=== PATIENT | female | born 1935 | race Caucasian/White ===

== ENCOUNTER 2017-09-17 10:56 | Emergency (ER) | payer MEDICARE, BC ==
[~2017-09-17] VITALS: Ht 149.9 cm; Wt 44.5 kg
[~2017-09-17 10:56] MED LIST: ASPI-605 PO; ATEN25TA PO; ATOR10TA PO; LEVO25TA2 PO; TRIA1CAP2 PO
--- NOTE | 2017-09-17 11:40 | NUR ---
BB CAREGIVER: LOWER BACK PAIN S/P GLF 1 WEEK AGO. SEEN BY FOR EVAL. VSS. SAFETY AND COMFORT MEASURES PROVIDED. CAREGIVER REMAINS AT BS. WILL MONITOR.
[2017-09-17] MEDS ORDERED: ONDANSETRON 4 MG TAB.RAPDIS ONE ×2 (12:10→18:56)
[2017-09-17] MEDS ORDERED: HYDROCODONE/APAP 5/325MG 1 EACH TABLET ONE ×2 (12:10→18:56)
[2017-09-17] MEDS: ONDANSETRON 4 MG TAB.RAPDIS SL ONE ×2 (12:14→19:34)
[2017-09-17] MEDS: HYDROCODONE/APAP 5/325MG 1 EACH TABLET PO ONE ×2 (12:14→19:05)
--- NOTE | 2017-09-17 13:10 | NUR ---
PT TAKEN TO CT.
--- NOTE | 2017-09-17 14:10 | NUR ---
CALLED DR LUND, ON THE PHONE WITH DR KRUEGER.
--- NOTE | 2017-09-17 14:20 | NUR ---
PT WANTS TO SIGN AMA. REFUSED ENEMA. AWARE.
[2017-09-17] MEDS: NA PHOS,M-B/NA PHOS,DI-BA 1 EA ENEMA RC ONE (14:52)
--- NOTE | 2017-09-17 15:00 | NUR ---
PT PLACED ON DIAPER. SAFETY MEASURES PROVIDED.
--- NOTE | 2017-09-17 16:18 | NUR ---
CALLED [employer] SURVEY FIELD TECHNICIAN WAS PAGED.
--- NOTE | 2017-09-17 17:12 | NUR ---
DR. SLAUGHTER CALLED AND NOTIFIED US THAT DR LORD WOULD LIKE US TO TRANSFER THE PT TO [facility].
[2017-09-17] MEDS ORDERED: ALPRAZOLAM 0.25 MG TABLET ONE (19:07)
[2017-09-17] MEDS: ALPRAZOLAM 0.25 MG TABLET PO ONE (19:15)
--- NOTE | 2017-09-17 19:48 | NUR ---
CALLED [facility], SPOKE WITH SARAI THEY ARE STILL WAITING FOR A BED TO BE AVAILABLE.
--- NOTE | 2017-09-17 20:40 | NUR ---
PT CLEANED AND CHANGED DIAPER REQUESTED. KEPT COMFORTABLE. CAREGIVER REMAINS AT BS. VSS. WILL MONITOR.
--- NOTE | 2017-09-17 21:06 | NUR ---
RECEIVED TRANSFER INFO FROM TODD [phone] FROM [facility]. TELE ROOM 4416-1; REPORT NUMBER [id number].
--- NOTE | 2017-09-17 21:08 | NUR ---
CALLED [id number]; RECEIPT NUMBER [id number]
--- NOTE | 2017-09-17 22:00 | NUR ---
REPORT GIVEN TO LESA JIMENEZ OF [facility].
--- NOTE | 2017-09-17 23:09 | NUR ---
CALLED [facility] FOR TRANSPORT UPDATED ETA 2330.
[2017-09-17 23:28] VITALS: BP 113/69
--- NOTE | 2017-09-17 23:32 | NUR ---
REPORT GIVEN TO [facility] STAFF FOR TRANSPORT.
== END 2017-09-17 23:43 | disposition short-term general hospital (02) ==
LOC: ER 10:58
DX: S32.029A Unspecified fracture of second lumbar vertebra, initial encounter for closed fracture (principal); M48.56XA Collapsed vertebra, not elsewhere classified, lumbar region, initial encounter for fracture; M81.0 Age-related osteoporosis without current pathological fracture; E11.9 Type 2 diabetes mellitus without complications; I10 Essential (primary) hypertension; Z79.82 Long term (current) use of aspirin; G43.909 Migraine, unspecified, not intractable, without status migrainosus; W18.39XA Other fall on same level, initial encounter; Y93.89 Activity, other specified; Y92.89 Other specified places as the place of occurrence of the external cause; Y99.8 Other external cause status
CPT/HCPCS: 72131-TC; A4606; Q0162; Z7610

== ENCOUNTER 2019-08-21 21:37 | Inpatient (IN) | payer MEDICARE, BC ==
[~2019-08-21] VITALS: Ht 154.9 cm; Wt 60.3 kg
--- NOTE | 2019-08-21 21:56 | NUR ---
PT AAOX3. BIBRA FOR AMS. W/ BASELINE DEMENTIA. PT FROM HOME, PER CAREGIVER, PT ALTERED SO CALLED RA. BG 350 @2100. PER RA, pt has HX of Dementia and A fib. Upon assessment, pt able to recall name and . Placed on monitor and pulse ox. Pt Afebrile. VSS. No acute distress noted. Awaiting MD for eval.
--- NOTE | 2019-08-21 21:59 | NUR ---
PER RA pt given 500ml NS
--- NOTE | 2019-08-21 22:19 | NUR ---
LABS COLLECTED AND SENT TO LAB
--- NOTE | 2019-08-21 22:29 | NUR ---
XRAY AT BEDSIDE
[2019-08-21] MEDS ORDERED: IV NS 0.9% 500 ML BAG IV ONE (22:30)
[2019-08-21 22:33] LABS: BASOPHILS % (AUTO) 0.2 % (0.0-2.0); CALCIUM, SERUM 8.3 mg/dL (8.5-10.1); CARBON DIOXIDE 24 mmol/L (21-32); CHLORIDE 99 mmol/L (98-107); CREATININE 1.6 mg/dL (0.6-1.3); EOSINOPHILS % (AUTO) 0.1 % (0.0-6.0); GLUCOSE 327 mg/dL (74-106); HEMATOCRIT 31 % (33-45); HEMOGLOBIN 10.4 g/dL (11.5-14.8); LYMPHOCYTES # (AUTO) 0.3 /CMM (0.8-4.8); LYMPHOCYTES % (AUTO) 3.5 % (20.0-44.0); MEAN CORPUSCULAR HGB CONC 33 g/dl (31.0-36.0); MEAN CORPUSCULAR VOLUME 94 fL (82-100); MONOCYTES # (AUTO) 0.6 /CMM (0.1-1.30); MONOCYTES % (AUTO) 6.6 % (2.0-12.0); NEUTROPHILS # (AUTO) 8.6 /CMM (1.8-8.9); NEUTROPHILS % (AUTO) 89.6 % (43.0-81.0); PLATELET COUNT (AUTO) 142 /CMM (150-450); RED BLOOD CELL COUNT(AUTO) 3.29 MIL/uL (4.0-5.2); SODIUM SERUM 133 mmol/L (136-145); UREA NITROGEN, BLOOD 48 mg/dL (7-18); WHITE BLOOD COUNT (AUTO) 9.6 K/uL (4.3-11.0)
--- NOTE | 2019-08-21 22:35 | NUR ---
BROUGHT TO CT
[2019-08-21 22:39] LABS: ACETAMINOPHEN 8 ug/ml (10-30); ALANINE AMINOTRANSFERASE 15 U/L (12-78); ALBUMIN 2.6 g/dL (3.4-5.0); ALCOHOL, BLOOD < 3 mg/dL (0-0); ALKALINE PHOSPHATASE 80 U/L (46-116); ASPARTATE AMINOTRANSFERASE 26 U/L (15-37); BILIRUBIN,DIRECT 0.2 mg/dL (0.0-0.2); BILIRUBIN,TOTAL 0.7 mg/dL (0.2-1.0); SALICYLATE 1.5 mg/dL (2.8-20.0); TOTAL PROTEIN, SERUM 6.4 g/dL (6.4-8.2)
[2019-08-21 22:49] LABS: THYROID STIMULATING HORMONE 1.314 uIU/mL (0.358-3.74)
[2019-08-21 22:51] LABS: SERUM AMMONIA < 10 umol/L (11-32)
--- NOTE | 2019-08-21 22:54 | NUR ---
URINE COLLECTED AND SENT TO LAB
[2019-08-21 22:57] LABS: APPEARANCE,URINE Clear (CLEAR); BILIRUBIN,URINE Negative (NEGATIVE); BLOOD, URINE Small Ery/uL (NEGATIVE); COLOR,URINE Yellow (YELLOW); KETONES,URINE Negative (NEGATIVE); LEUKOCYTE ESTERASE ,URINE Small (NEGATIVE); NITRITE, URINE Negative (NEGATIVE); PROTEIN,URINE 30 mg/dl (NEGATIVE); UGLUCOSE 500 MG/DL mg/dL (NEGATIVE); UROBILINOGEN,URINE 0.2 EU/dL (0.2)
[2019-08-21 23:05] LABS: BACTERIA,URINE 1+ /HPF (None Seen); SQUAMOUS EPITHELIAL CELL,UR Few /HPF (None Seen)
[2019-08-21] MEDS ORDERED: GLIP5TAB13 PO (23:41)
[2019-08-21] MEDS ORDERED: LORA-259 PO (23:41)
[2019-08-21] MEDS ORDERED: ATOR80TA PO (23:41)
[2019-08-21] MEDS ORDERED: QUET25TA PO (23:41)
[2019-08-21] MEDS ORDERED: SERT50TA PO (23:41)
[2019-08-21] MEDS ORDERED: DONE5TAB34 PO (23:41)
[2019-08-21] MEDS ORDERED: MEMA10TA PO (23:41)
[2019-08-21] MEDS ORDERED: LEVO50TA8 PO (23:41)
[2019-08-22] VITALS (8 sets, daily range): BP systolic 87–152; BP diastolic 42–69
--- NOTE | 2019-08-22 01:00 | NUR ---
report given to ALEXYS JIMENEZ FOR MAGDALENO AND PT TRANSFERED.
--- NOTE | 2019-08-22 01:49 | NUR ---
contacted dr. frankel in [facility] to admission orders. stated he will write the main orders now, but initial orders given.
[2019-08-22] MEDS ORDERED: CEFTRIAXONE 1 G in IV D5W 50 ML IV ONE (02:00)
[2019-08-22] MEDS ORDERED: CEFTRIAXONE 1 G VIAL ONE (02:40)
[2019-08-22] MEDS: ACETAMINOPHEN 325 MG TABLET PO PRN ×2 (05:14→21:22)
[2019-08-22] MEDS: ONDANSETRON HCL/PF 4 MG/2 ML VIAL IV PRN (05:14)
--- NOTE | 2019-08-22 05:20 | NUR ---
PATIENT HAS TEMP OF 101.5; N/V; PATIENT CREW CALLER GIANA AT THE BEDSIDE, PT COMPLAINING OF NAUSEA AND VOMITING. FOUND IN BED SHAKING, PATIENT HAS VOMITED X1 C/O BEING NAUSEOUS. ZOFRAN ADMINISTERED ORDERED. TEMPERATURE TAKEN AND FOUND TO BE 101.5 DEGREES. PATIENT GIVEN TYELENOL AND EXTRA BLANKETS REMOVED. WILL CONT TO MONITOR.
--- NOTE | 2019-08-22 05:29 | NUR ---
GIANA AND CARIDAD ARE POA PHONE NUMBER; REQUESTED ADVANCE DIRECTIVES. GIANA FARIA PHONE: [phone] HANNAH IS ALSO POA BUT PER GIANA HARDER TO GET AHOLD OF [employer]ID[employer] [phone] REQUESTED COPIES OF ADVANCE DIRECTIVES FROM GIANA. STATES SHE WILL TRY TO BRING THEM O THE HOSPITAL LATER.
[2019-08-22] MEDS ORDERED: ACETAMINOPHEN 325 MG TABLET PO PRN (07:00)
[2019-08-22] MEDS ORDERED: ONDANSETRON HCL/PF 4 MG/2 ML VIAL IVP PRN (07:00)
[2019-08-22] MEDS ORDERED: CEFTRIAXONE 1 G in IV D5W 50 ML IV SCH (07:00)
[2019-08-22] MEDS ORDERED: DEXTROSE 50%-WATER 50 ML DISP.SYRIN IV PRN (07:00)
[2019-08-22] MEDS ORDERED: Z GUARD REMEDY 2 OZ OINT TP PRN (07:00)
[2019-08-22] MEDS: BLOOD SUGAR DIAGNOSTIC 1 EACH STRIP IN SCH ×4 (07:30→21:22)
--- NOTE | 2019-08-22 08:00 | NUR ---
ms rn received on bed, awake,alert,oriented x2-3 ,not in any form of distress, respirations even and unlabored,no sob noted, respiratory care specialist at bedside, will monitor patient.
[2019-08-22 08:31] LABS: CALCIUM, SERUM 8.2 mg/dL (8.5-10.1); CARBON DIOXIDE 22 mmol/L (21-32); CHLORIDE 97 mmol/L (98-107); CREATININE 1.6 mg/dL (0.6-1.3); GLUCOSE 328 mg/dL (74-106); SODIUM SERUM 132 mmol/L (136-145); UREA NITROGEN, BLOOD 43 mg/dL (7-18)
[2019-08-22 08:40] LABS: ALANINE AMINOTRANSFERASE 22 U/L (12-78); ALBUMIN 2.5 g/dL (3.4-5.0); ALKALINE PHOSPHATASE 82 U/L (46-116); ASPARTATE AMINOTRANSFERASE 32 U/L (15-37); BILIRUBIN,TOTAL 0.6 mg/dL (0.2-1.0); MAGNESIUM 1.9 mg/dL (1.8-2.4); PHOSPHORUS 1.9 mg/dL (2.5-4.9); TOTAL PROTEIN, SERUM 6.1 g/dL (6.4-8.2)
--- NOTE | 2019-08-22 08:40 | NUR ---
ms rn received critical value of k - 2.5 and trop is elevated, left message to jesus, and charge nurse was notified.
[2019-08-22 08:43] LABS: BASOPHILS % (AUTO) 0.1 % (0.0-2.0); CHOLESTEROL 100 mg/dL (<200); HDL CHOLESTEROL 34 mg/dL (40-60); HEMATOCRIT 31 % (33-45); HEMOGLOBIN 10.4 g/dL (11.5-14.8); LDL 47 mg/dL (0-99); LYMPHOCYTES # (AUTO) 0.2 /CMM (0.8-4.8); LYMPHOCYTES % (AUTO) 1.9 % (20.0-44.0); MEAN CORPUSCULAR HGB CONC 34 g/dl (31.0-36.0); MEAN CORPUSCULAR VOLUME 93 fL (82-100); MONOCYTES # (AUTO) 0.5 /CMM (0.1-1.30); MONOCYTES % (AUTO) 6.7 % (2.0-12.0); NEUTROPHILS # (AUTO) 7.2 /CMM (1.8-8.9); NEUTROPHILS % (AUTO) 91.3 % (43.0-81.0); PLATELET COUNT (AUTO) 118 /CMM (150-450); RED BLOOD CELL COUNT(AUTO) 3.33 MIL/uL (4.0-5.2); THYROID STIMULATING HORMONE 1.013 uIU/mL (0.358-3.74); TRIGLYCERIDES 80 mg/dL (30-150); WHITE BLOOD COUNT (AUTO) 7.9 K/uL (4.3-11.0)
[2019-08-22 08:46] LABS: POTASSIUM 2.5 mmol/L (3.5-5.1)
[2019-08-22] MEDS: ATENOLOL 25 MG TABLET PO SCH (09:00)
[2019-08-22 09:02] LABS: IRON, SERUM 23 ug/dl (50-175); TOTAL IRON BINDING CAPACITY 132 ug/dl (250-450)
--- NOTE | 2019-08-22 09:30 | NUR ---
ms rn patient is so sleepy and weak at this time, will held am meds, will give later.
[2019-08-22] MEDS ORDERED: POTASSIUM CL. PREMIX PERIPHER. 50 ML IV SCH (10:00)
--- NOTE | 2019-08-22 11:00 | NUR ---
ms rn was seen by dr. dante ellison/ orders made and carried out,
--- NOTE | 2019-08-22 12:50 | NUR ---
ms rn due meds given,tolerated well.
[2019-08-22] MEDS ORDERED: NEUTRA PHOS 1 POWD.PACKET PO ONE (13:00)
[2019-08-22] MEDS: QUETIAPINE FUMARATE 25 MG TABLET PO SCH ×2 (13:25→16:40)
[2019-08-22] MEDS: MEMANTINE HCL 5 MG TABLET PO SCH (13:25)
[2019-08-22] MEDS: LEVOTHYROXINE SODIUM 25 MCG TABLET PO SCH (13:25)
[2019-08-22] MEDS: PANTOPRAZOLE 40 MG TABLET.DR PO SCH (13:25)
[2019-08-22] MEDS: SERTRALINE HCL 50 MG TABLET PO SCH (13:25)
[2019-08-22] MEDS: ASPIRIN EC 81 MG TABLET.DR PO SCH (13:26)
[2019-08-22] MEDS: POTASSIUM CHLORIDE 20 MEQ TAB.PRT.SR PO SCH ×5 (13:26→17:39)
[2019-08-22] MEDS: DONEPEZIL 5 MG TABLET PO SCH (13:26)
[2019-08-22] MEDS: DOCUSATE SODIUM 100 MG CAPSULE PO SCH ×2 (13:26→17:39)
[2019-08-22] MEDS: glipiZIDE 5 MG TABLET PO SCH ×2 (13:26→17:39)
[2019-08-22] MEDS: ENOXAPARIN SODIUM 60 MG/0.6 ML DISP.SYRIN SQ SCH (13:35)
[2019-08-22] MEDS: INSULIN REGULAR, HUMAN 100 UNIT/ML 3 ML VIAL SQ PRN ×3 (13:45→21:37)
--- NOTE | 2019-08-22 15:20 | NUR ---
ms rn' eceived a positive blood culture result, cn made awake, will relay to md.
--- NOTE | 2019-08-22 16:02 | NUR ---
ms rn' on bed, no distress noted.
--- NOTE | 2019-08-22 20:34 | NUR ---
SIGNAL TOWER DIRECTOR NOTES RECIEVED PT ON BED AWAKE, ALERT ORIENTED X2, WITH FAMILY MEMBER AT BEDSIDE, NO SIGN AND SYMPTOMS OF RESPIRATORY DISTRESS, COMPLAINING OF PAIN ON LEFT LEG X5, REPOSITION PT, PUT ICE PACK TO RELIEVED PAIN, PT HAVE IV LINE OF R ARM WITH FLUID INFUSING WELL, PUT BED ON LOWEST POSITION, SIDERAILS UPX2 CALL LIGHT WITHIN REACH WILL CONTINUE TO MONITOR
[2019-08-22] MEDS: IV NS 0.9% 1,000 ML IV PRN (21:17)
[2019-08-22] MEDS: ATORVASTATIN 10 MG TABLET PO SCH (21:22)
[2019-08-23 01:00] VITALS: BP 98/60
[2019-08-23] MEDS: MORPHINE SULFATE INJ 2 MG/ML DISP.SYRIN IV PRN ×3 (02:31→15:26)
[2019-08-23] MEDS: CEFTRIAXONE 1 G in IV D5W 50 ML IV SCH (04:47)
[2019-08-23 05:00] VITALS: BP 120/58
[2019-08-23] MEDS: ACETAMINOPHEN 325 MG TABLET PO PRN (05:26)
[2019-08-23 06:30] LABS: BASOPHILS % (AUTO) 0.2 % (0.0-2.0); EOSINOPHILS % (AUTO) 0.5 % (0.0-6.0); HEMATOCRIT 28 % (33-45); HEMOGLOBIN 9.5 g/dL (11.5-14.8); LYMPHOCYTES # (AUTO) 0.7 /CMM (0.8-4.8); LYMPHOCYTES % (AUTO) 8.6 % (20.0-44.0); MEAN CORPUSCULAR HGB CONC 34 g/dl (31.0-36.0); MEAN CORPUSCULAR VOLUME 93 fL (82-100); MONOCYTES # (AUTO) 0.8 /CMM (0.1-1.30); MONOCYTES % (AUTO) 9.6 % (2.0-12.0); NEUTROPHILS # (AUTO) 6.4 /CMM (1.8-8.9); NEUTROPHILS % (AUTO) 81.1 % (43.0-81.0); PLATELET COUNT (AUTO) 138 /CMM (150-450); RED BLOOD CELL COUNT(AUTO) 3.01 MIL/uL (4.0-5.2); WHITE BLOOD COUNT (AUTO) 7.9 K/uL (4.3-11.0)
[2019-08-23 06:46] LABS: ALANINE AMINOTRANSFERASE 19 U/L (12-78); ALBUMIN 2.1 g/dL (3.4-5.0); ALKALINE PHOSPHATASE 67 U/L (46-116); ASPARTATE AMINOTRANSFERASE 35 U/L (15-37); BILIRUBIN,TOTAL 0.3 mg/dL (0.2-1.0); CALCIUM, SERUM 7.5 mg/dL (8.5-10.1); CARBON DIOXIDE 22 mmol/L (21-32); CHLORIDE 101 mmol/L (98-107); CREATININE 1.4 mg/dL (0.6-1.3); GLUCOSE 75 mg/dL (74-106); MAGNESIUM 1.8 mg/dL (1.8-2.4); PHOSPHORUS 2.2 mg/dL (2.5-4.9); POTASSIUM 3.7 mmol/L (3.5-5.1); SODIUM SERUM 134 mmol/L (136-145); TOTAL PROTEIN, SERUM 5.7 g/dL (6.4-8.2); UREA NITROGEN, BLOOD 42 mg/dL (7-18)
--- NOTE | 2019-08-23 07:10 | NUR ---
RN OPENING NOTE: RECEIVED PATIENT IN BED THIS MORNING. PATIENT IS ALERT, ABLE TO FOLLOW COMMANDS BUT HAS SERIES OF CONFUSION/FORGETFULNESS. CAREGIVER IS AT BEDSIDE. NO ACUTE DISTRESS NOTED. PATIENT IS ON A TELE MONITOR, SINUS RHYTHM. NO SX OF RESPIRATORY DISTRESS. PATIENT C/O PAIN TO HEAD/NECK, WILL ATTAIN TO NEEDS. IV ON RIGHT ARM, FLUSHING WELL, SITE C/D/I. SAFETY MEASURES IMPLICATED, SIDE RAILS UPX2. CALL LIGHT WITHIN REACH. WILL CONTINUE TO MONITOR PATIENT FOR ANY CHANGES.
--- NOTE | 2019-08-23 07:13 | NUR ---
RN CLOSING NOTES PT AWAKE ON BED NO SIGN AND SYMPTOMS OF RESPIRATORY DISTRESS, ON ROOM AIR O2 SAT @ 97, STILL COMPLAINING OF LEFT LEG PAIN TYLENOL LAST GIVEN @ 0525, MORPHINE 1G @ 0231, DOCTOR YVONNE AWARE, OTHER THAT THAT THERE IS NO SIGNIFICANT CHANGES ON CONDITION NOTED, ALL NEEDS ATTENDED, SAFETY MEASURE MAINTAINED, BED ON LOWEST POSSIBLE POSITION, SIDERAILS UP X 2 CAREGIVER ON BEDSIDE, WILL ENDORSE TO AM SHIFT NURSE Addendum: 08/23/19 at 0752 by ASHA SAVAGE RN PT ON TELE MONITOR WITH CURRENT READING OF SR 67
[2019-08-23 07:17] LABS: CREATINE KINASE, TOTAL 165 U/L (26-192)
[2019-08-23] MEDS: glipiZIDE 5 MG TABLET PO SCH ×2 (07:30→17:28)
[2019-08-23 08:00] VITALS: BP 113/60
[2019-08-23] MEDS: BLOOD SUGAR DIAGNOSTIC 1 EACH STRIP IN SCH ×4 (08:04→21:05)
[2019-08-23] MEDS: INSULIN REGULAR, HUMAN 100 UNIT/ML 3 ML VIAL SQ PRN ×5 (08:05→21:19)
[2019-08-23 08:06] LABS: CREATININE, URINE 76.2 MG/DL (30.0-125.0); URINE SODIUM, RANDOM < 5 mmol/l (40-220); URINE TOTAL PROTEIN 39.3 mg/dL (0-11.9)
[2019-08-23] MEDS: DOCUSATE SODIUM 100 MG CAPSULE PO SCH ×2 (08:35→17:28)
[2019-08-23] MEDS: ENOXAPARIN SODIUM 60 MG/0.6 ML DISP.SYRIN SQ SCH (08:35)
[2019-08-23] MEDS: DONEPEZIL 5 MG TABLET PO SCH (08:35)
[2019-08-23] MEDS: QUETIAPINE FUMARATE 25 MG TABLET PO SCH ×2 (08:35→17:28)
[2019-08-23] MEDS: SERTRALINE HCL 50 MG TABLET PO SCH (08:35)
[2019-08-23] MEDS: MEMANTINE HCL 5 MG TABLET PO SCH (08:35)
[2019-08-23] MEDS: ASPIRIN EC 81 MG TABLET.DR PO SCH (08:35)
[2019-08-23] MEDS: ATENOLOL 25 MG TABLET PO SCH (08:36)
[2019-08-23] MEDS: LEVOTHYROXINE SODIUM 25 MCG TABLET PO SCH (08:38)
[2019-08-23] MEDS: PANTOPRAZOLE 40 MG TABLET.DR PO SCH (08:38)
[2019-08-23] MEDS: IV NS 0.9% 1,000 ML IV PRN (08:41)
[2019-08-23 09:27] LABS: APPEARANCE,URINE CLOUDY (CLEAR); BILIRUBIN,URINE NEGATIVE (NEGATIVE); BLOOD, URINE MODERATE Ery/uL (NEGATIVE); COLOR,URINE YELLOW (YELLOW); KETONES,URINE NEGATIVE (NEGATIVE); LEUKOCYTE ESTERASE ,URINE MODERATE (NEGATIVE); NITRITE, URINE NEGATIVE (NEGATIVE); PROTEIN,URINE NEGATIVE (NEGATIVE); UGLUCOSE NEGATIVE (NEGATIVE); UROBILINOGEN,URINE 0.2 EU/dL (0.2)
[2019-08-23 10:29] LABS: BACTERIA,URINE 2+ /HPF (None Seen); MUCUS,URINE Few /LPF (None Seen); URINE AMORPHOUS URATE Few /HPF (None Seen); WBC,URINE 21-50 /HPF (0-3)
[2019-08-23] MEDS ORDERED: SODIUM POLYSTYRENE SULF. PWD 15 GM UDC RC ONE (11:00)
[2019-08-23 11:26] LABS: EOSINOPHIL,URINE None Seen
[2019-08-23] MEDS ORDERED: K PHOS NEUTRAL 250 MG TABLET PO ONE (14:30)
[2019-08-23 16:00] VITALS: BP 100/56
--- NOTE | 2019-08-23 19:12 | NUR ---
RN CLOSING NOTE: PATIENT IS CURRENTLY RESTING IN BED. NO ACUTE DISTRESS NOTED/ACUTE CHANGES NOTED THROUGHOUT SHIFT. VSS. PATIENT NEEDS HAVE BEEN MET. SAFETY MEASURES HAVE BEEN IMPLEMENTED. CAREGIVER AT BEDSIDE. BED IN LOWEST AND LOCKED POSITION, SIDE RAILS UP X2, CALL LIGHT WITHIN REACH. HANDOFF REPORT TO ONCOMING NURSE FOR CONTINUITY OF CARE.
[2019-08-23 20:00] VITALS: BP 97/58
--- NOTE | 2019-08-23 20:00 | NUR ---
MS/RN OPENING NOTES RECEIVED PATIENT IN BED, HOB ELEVATED, RESTING COMFORTABLY IN BED, FAMILY MEMBER AT BEDSIDE. DISCUSSED PLAN OF CARE, NO GRIMACE OR GUARDING NOTED. RESPIRATIONS EVEN AND UNLABORED, SKIN WARM TO TOUCH, OFFERED AND PROVIDED FLUIDS, BED LOCKED, CALL LIGHTS WITHIN REACH, WILL MONITOR.
[2019-08-23] MEDS: ATORVASTATIN 10 MG TABLET PO SCH (21:04)
[2019-08-23] MEDS: ropiniROLE 0.5 MG TABLET PO SCH (21:04)
--- NOTE | 2019-08-23 21:45 | NUR ---
MS/RN NOTES RECEIVED PATIENT IN BED, AWAKE, ALERT X2, NO GRIMACE OR GUARDING, COMPLIANT TO CARE. RESPIRATIONS EVEN AN UNLABORED, ON ROOM AIR, SKIN WARM TO TOUCH. KEPT COMFORTABLE, ASSISTED WITH ALL NEEDS, MONITORING FOR ANY CHANGES. CAREGIVER AT BEDSIDE, BED LOCKED. CALL LIGHTS WITHIN REACH. RECEIVED ENDORSEMENT FROM AM RN FOR MAGDALENO. IV FLUIDS RUNNING, RIGHT AC PATENT.
[2019-08-24] VITALS: BP_SYST 144; BP_SYST 97; BP_DIAS 58; BP_DIAS 73
[2019-08-24] MEDS: ACETAMINOPHEN 325 MG TABLET PO PRN (02:13)
--- NOTE | 2019-08-24 02:20 | NUR ---
MS/RN NOTES PATIENTAWAKEN FROM SLEEP, TYLENOL 650 MG PO REQUESTED FOR SOME PAIN. TO MONITOR RELIEF.
[2019-08-24] MEDS: CEFTRIAXONE 1 G in IV D5W 50 ML IV SCH (04:01)
[2019-08-24 06:27] LABS: BASOPHILS % (AUTO) 0.2 % (0.0-2.0); EOSINOPHILS % (AUTO) 1.6 % (0.0-6.0); HEMATOCRIT 25 % (33-45); HEMOGLOBIN 8.4 g/dL (11.5-14.8); LYMPHOCYTES % (AUTO) 13.9 % (20.0-44.0); MEAN CORPUSCULAR HGB CONC 34 g/dl (31.0-36.0); MEAN CORPUSCULAR VOLUME 92 fL (82-100); MONOCYTES # (AUTO) 0.8 /CMM (0.1-1.30); MONOCYTES % (AUTO) 11.6 % (2.0-12.0); NEUTROPHILS % (AUTO) 72.7 % (43.0-81.0); PLATELET COUNT (AUTO) 130 /CMM (150-450); RED BLOOD CELL COUNT(AUTO) 2.67 MIL/uL (4.0-5.2); WHITE BLOOD COUNT (AUTO) 6.9 K/uL (4.3-11.0)
[2019-08-24 06:52] LABS: ALANINE AMINOTRANSFERASE 13 U/L (12-78); ALBUMIN 1.7 g/dL (3.4-5.0); ALKALINE PHOSPHATASE 52 U/L (46-116); ASPARTATE AMINOTRANSFERASE 23 U/L (15-37); BILIRUBIN,TOTAL 0.2 mg/dL (0.2-1.0); CALCIUM, SERUM 7.6 mg/dL (8.5-10.1); CARBON DIOXIDE 20 mmol/L (21-32); CHLORIDE 101 mmol/L (98-107); CREATININE 1.4 mg/dL (0.6-1.3); GLUCOSE 119 mg/dL (74-106); MAGNESIUM 1.9 mg/dL (1.8-2.4); PHOSPHORUS 3.3 mg/dL (2.5-4.9); POTASSIUM 3.8 mmol/L (3.5-5.1); SODIUM SERUM 132 mmol/L (136-145); UREA NITROGEN, BLOOD 37 mg/dL (7-18)
[2019-08-24] MEDS: BLOOD SUGAR DIAGNOSTIC 1 EACH STRIP IN SCH ×4 (07:30→21:52)
[2019-08-24 07:58] LABS: PTH, INTACT 110 pg/mL (15-65)
[2019-08-24 08:00] VITALS: BP 125/62
[2019-08-24] MEDS: ONDANSETRON HCL/PF 4 MG/2 ML VIAL IV PRN (08:17)
[2019-08-24] MEDS: ASPIRIN EC 81 MG TABLET.DR PO SCH (08:20)
[2019-08-24] MEDS: SERTRALINE HCL 50 MG TABLET PO SCH (08:20)
[2019-08-24] MEDS: DOCUSATE SODIUM 100 MG CAPSULE PO SCH ×2 (08:20→17:16)
[2019-08-24] MEDS: PANTOPRAZOLE 40 MG TABLET.DR PO SCH (08:21)
[2019-08-24] MEDS: DONEPEZIL 5 MG TABLET PO SCH (08:21)
[2019-08-24] MEDS: LEVOTHYROXINE SODIUM 25 MCG TABLET PO SCH (08:21)
[2019-08-24] MEDS: ATENOLOL 25 MG TABLET PO SCH (08:21)
[2019-08-24] MEDS: MEMANTINE HCL 5 MG TABLET PO SCH (08:21)
[2019-08-24] MEDS: QUETIAPINE FUMARATE 25 MG TABLET PO SCH ×2 (08:21→17:16)
[2019-08-24] MEDS: glipiZIDE 5 MG TABLET PO SCH ×2 (08:21→17:15)
[2019-08-24] MEDS: MORPHINE SULFATE INJ 2 MG/ML DISP.SYRIN IV PRN (08:25)
[2019-08-24] MEDS: ENOXAPARIN SODIUM 30 MG/0.3 ML DISP.SYRIN SQ SCH (09:00)
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
[2019-08-24] MEDS: INSULIN REGULAR, HUMAN 100 UNIT/ML 3 ML VIAL SQ PRN ×2 (11:39→17:17)
[2019-08-24 12:00] VITALS: BP 125/62
[2019-08-24 15:17] LABS: *SPE A/G RATIO 0.8 (0.7-1.7); *SPE ALBUMIN 2.3 g/dL (2.9-4.4); *SPE ALPHA-1-GLOBULIN 0.5 g/dL (0.0-0.4); *SPE ALPHA-2-GLOBULIN 0.9 g/dL (0.4-1.0); *SPE BETA GLOBULIN 0.7 g/dL (0.7-1.3); *SPE GLOBULIN, TOTAL 2.9 g/dL (2.2-3.9); *SPE M-SPIKE Not Observed g/dL (Not Observed); *SPEGAMMA GLOBULIN 0.8 g/dL (0.4-1.8)
[2019-08-24] MEDS: IV NS 0.9% 1,000 ML IV PRN (15:36)
--- NOTE | 2019-08-24 18:52 | NUR ---
PATIENT IS CURRENTLY RESTING IN BED. NO ACUTE DISTRESS NOTED/ACUTE CHANGES NOTED THROUGHOUT SHIFT. VS ARE STABLE. PATIENT NEEDS ATTENDED. SAFETY MEASURES HAVE BEEN IMPLEMENTED. CAREGIVER AT BEDSIDE. BED IN LOWEST AND LOCKED POSITION, SIDE RAILS UP X2, CALL LIGHT WITHIN REACH. WILL ENDORSE TO NEXT SHIFT FOR CONTINUITY OF CARE.
--- NOTE | 2019-08-24 19:40 | NUR ---
RN Notes Patient awake, alert and oriented x2, denies any pain and discomfort at this time. IV acces on rifght hand patent and intact with ongoing IVF infusing well. Plan of care discussed with the pharmacist critical care at bedside and verbalized understanding.Safety measures and fall precaution observed with call light with in reach. Will continue to monitor patient.
[2019-08-24 20:00] VITALS: BP 109/51
[2019-08-24] MEDS: ATORVASTATIN 10 MG TABLET PO SCH (21:53)
[2019-08-24] MEDS: ropiniROLE 0.5 MG TABLET PO SCH (21:53)
[2019-08-25] VITALS: BP 109/51
[2019-08-25] MEDS: IV NS 0.9% 1,000 ML IV PRN (03:30)
[2019-08-25] MEDS: MORPHINE SULFATE INJ 2 MG/ML DISP.SYRIN IV PRN (03:32)
--- NOTE | 2019-08-25 03:32 | NUR ---
RN Notes Patient complains of pain in her left leg, 02/25. Morphine 1mg given IVP. Will continue to monitor.
[2019-08-25 04:00] VITALS: BP 110/55
[2019-08-25] MEDS: CEFTRIAXONE 1 G in IV D5W 50 ML IV SCH (04:58)
[2019-08-25] MEDS: BLOOD SUGAR DIAGNOSTIC 1 EACH STRIP IN SCH ×4 (07:01→21:42)
--- NOTE | 2019-08-25 07:06 | NUR ---
RN Notes Patient slept well overnight, vital signs stable, afebrile. No signs of distress and discomfort noted. Patient refused to be turned and repositioned. Kept clean and dry. All needs attended with caregiver at bedside.
--- NOTE | 2019-08-25 07:20 | NUR ---
INITIAL RECEIVED PATIENT IN BED, HOB ELEVATED, RESTING COMFORTABLY IN BED, FAMILY MEMBER AT BEDSIDE. DISCUSSED PLAN OF CARE, NO GRIMACE OR GUARDING NOTED. RESPIRATIONS EVEN AND UNLABORED, SKIN WARM TO TOUCH, OFFERED AND PROVIDED FLUIDS, BED LOCKED, CALL LIGHTS WITHIN REACH, WILL MONITOR.
[2019-08-25 07:24] LABS: BASOPHILS % (AUTO) 0.4 % (0.0-2.0); HEMATOCRIT 29 % (33-45); HEMOGLOBIN 9.5 g/dL (11.5-14.8); LYMPHOCYTES # (AUTO) 1.3 /CMM (0.8-4.8); LYMPHOCYTES % (AUTO) 19.9 % (20.0-44.0); MEAN CORPUSCULAR HGB CONC 33 g/dl (31.0-36.0); MEAN CORPUSCULAR VOLUME 94 fL (82-100); MONOCYTES # (AUTO) 0.8 /CMM (0.1-1.30); MONOCYTES % (AUTO) 12.8 % (2.0-12.0); NEUTROPHILS # (AUTO) 4.1 /CMM (1.8-8.9); NEUTROPHILS % (AUTO) 64.9 % (43.0-81.0); PLATELET COUNT (AUTO) 178 /CMM (150-450); RED BLOOD CELL COUNT(AUTO) 3.08 MIL/uL (4.0-5.2); WHITE BLOOD COUNT (AUTO) 6.3 K/uL (4.3-11.0)
[2019-08-25] MEDS: LEVOTHYROXINE SODIUM 25 MCG TABLET PO SCH (07:40)
[2019-08-25] MEDS: PANTOPRAZOLE 40 MG TABLET.DR PO SCH (07:40)
[2019-08-25] MEDS: glipiZIDE 5 MG TABLET PO SCH ×2 (07:40→16:05)
[2019-08-25 08:00] VITALS: BP 121/59
[2019-08-25 08:20] LABS: CALCIUM, SERUM 7.9 mg/dL (8.5-10.1); CARBON DIOXIDE 20 mmol/L (21-32); CHLORIDE 102 mmol/L (98-107); CREATININE 1.2 mg/dL (0.6-1.3); GLUCOSE 104 mg/dL (74-106); MAGNESIUM 1.9 mg/dL (1.8-2.4); PHOSPHORUS 3.2 mg/dL (2.5-4.9); POTASSIUM 3.7 mmol/L (3.5-5.1); SODIUM SERUM 133 mmol/L (136-145); UREA NITROGEN, BLOOD 30 mg/dL (7-18)
[2019-08-25] MEDS: ATENOLOL 25 MG TABLET PO SCH (09:00)
[2019-08-25] MEDS: SERTRALINE HCL 50 MG TABLET PO SCH (09:11)
[2019-08-25] MEDS: MEMANTINE HCL 5 MG TABLET PO SCH (09:11)
[2019-08-25] MEDS: DOCUSATE SODIUM 100 MG CAPSULE PO SCH ×2 (09:11→16:05)
[2019-08-25] MEDS: ASPIRIN EC 81 MG TABLET.DR PO SCH (09:11)
[2019-08-25] MEDS: DONEPEZIL 5 MG TABLET PO SCH (09:11)
[2019-08-25] MEDS: ENOXAPARIN SODIUM 30 MG/0.3 ML DISP.SYRIN SQ SCH (09:13)
[2019-08-25] MEDS: QUETIAPINE FUMARATE 25 MG TABLET PO SCH ×2 (09:18→16:05)
--- NOTE | 2019-08-25 11:40 | NUR ---
BARBARA NOTE: Clarified with Patrick Arenas DNP regarding the 2 IVF order for the patient. Per Patrick Arenas, FANNIE wanted to keep the 0.45% NS + KCL 20meq @60ml/hr and will DC the NS IVF. Order, noted and carried out. BARBARA Miranda was made aware.
[2019-08-25] MEDS: INSULIN REGULAR, HUMAN 100 UNIT/ML 3 ML VIAL SQ PRN ×3 (11:57→21:45)
[2019-08-25 12:00] VITALS: BP 121/59
[2019-08-25 16:00] VITALS: BP 128/62
[2019-08-25] MEDS ORDERED: LEVOFLOXACIN (500MG) 500 MG TABLET PO ONE (16:00)
--- NOTE | 2019-08-25 19:13 | NUR ---
CLOSING PT REMAINS SAFE ALL MEDICATIONS TAKEN AND GIVEN PT STARTED ON PO ANTIBIOTICS. WILL GIVEN RN REPORT TO MIX CHEMIST RN FOR CONTINUITY OF CARE.
--- NOTE | 2019-08-25 19:31 | NUR ---
MS RN RECEIVED PATIENT IN BED A/O X 2 CAREGIVER AT BEDSIDE,WATCHING TV, STABLE AND NOT IN DISTRESS. WILL CONTINUE TO MONITOR
[2019-08-25 20:00] VITALS: BP 97/46
[2019-08-25] MEDS: ATORVASTATIN 10 MG TABLET PO SCH (21:27)
[2019-08-25] MEDS: ACETAMINOPHEN 325 MG TABLET PO PRN (21:27)
[2019-08-25] MEDS: ropiniROLE 0.5 MG TABLET PO SCH (21:30)
[2019-08-26 04:00] VITALS: BP 101/51
--- NOTE | 2019-08-26 05:01 | NUR ---
V/S TAKEN BP 105/58 R 19 P 68
[2019-08-26] MEDS: MORPHINE SULFATE INJ 2 MG/ML DISP.SYRIN IV PRN (05:02)
--- NOTE | 2019-08-26 06:25 | NUR ---
MS RN PT SLEPT WELL. NO SIGNIFICANT CHANGES, CAREGIVER AT BEDSIDE, NO S/S OF DISTRESS, STABLE. NEEDS ATTENDED AND ANTICIPATED, KEPT CLEAN, DRY AND COMFORTABLE. AM CARE RENDERED. SAFETY MEASURES AT ALL TIMES. WILL ENDORSE POC.
[2019-08-26 06:26] LABS: BASOPHILS % (AUTO) 0.7 % (0.0-2.0); EOSINOPHILS % (AUTO) 2.4 % (0.0-6.0); HEMATOCRIT 26 % (33-45); HEMOGLOBIN 8.9 g/dL (11.5-14.8); LYMPHOCYTES # (AUTO) 1.4 /CMM (0.8-4.8); LYMPHOCYTES % (AUTO) 25.1 % (20.0-44.0); MEAN CORPUSCULAR HGB CONC 34 g/dl (31.0-36.0); MEAN CORPUSCULAR VOLUME 92 fL (82-100); MONOCYTES # (AUTO) 0.7 /CMM (0.1-1.30); MONOCYTES % (AUTO) 13.8 % (2.0-12.0); NEUTROPHILS # (AUTO) 3.1 /CMM (1.8-8.9); PLATELET COUNT (AUTO) 203 /CMM (150-450); WHITE BLOOD COUNT (AUTO) 5.4 K/uL (4.3-11.0)
[2019-08-26 06:43] LABS: ALBUMIN 1.6 g/dL (3.4-5.0); BILIRUBIN,TOTAL 0.2 mg/dL (0.2-1.0); CREATININE 1.1 mg/dL (0.6-1.3); MAGNESIUM 1.9 mg/dL (1.8-2.4); PHOSPHORUS 3.6 mg/dL (2.5-4.9); POTASSIUM 4.2 mmol/L (3.5-5.1); TOTAL PROTEIN, SERUM 5.3 g/dL (6.4-8.2)
--- NOTE | 2019-08-26 07:30 | NUR ---
MS RN OPENING NOTES RECEIVED PATIENT AWAKE IN BED, A/O 2, PATIENT IS FORGETFUL AND CONFUSED. SKIN LOOKS CLEAN AND DRY. CAREGIVER IS AT BEDSIDE. IV ON RIGHT FOREARM AND RAC BOTH #20, INTACT, PATENT, AND FLUSHED WELL. NO S/S OF INFECTION IS NOTED. POTASSIUM CH. RUNNING AT 60MLS/HR. NO DISTRESS NOTED. PATIENT IS ON ROOM AIR, TOLERATING WELL, SATURATION AT 95%. SAFETY MAINTAINED, CALL LIGHT WITHIN REACH, WILL CONTINUE TO MONITOR.
[2019-08-26] MEDS: BLOOD SUGAR DIAGNOSTIC 1 EACH STRIP IN SCH ×2 (07:33→11:58)
[2019-08-26] MEDS: glipiZIDE 5 MG TABLET PO SCH (07:34)
[2019-08-26] MEDS: LEVOTHYROXINE SODIUM 25 MCG TABLET PO SCH (07:34)
[2019-08-26] MEDS: PANTOPRAZOLE 40 MG TABLET.DR PO SCH (07:34)
[2019-08-26 08:00] VITALS: BP 102/63
[2019-08-26] MEDS: SERTRALINE HCL 50 MG TABLET PO SCH (08:53)
[2019-08-26 08:54] VITALS: BP 102/63
[2019-08-26] MEDS: MEMANTINE HCL 5 MG TABLET PO SCH (08:54)
[2019-08-26] MEDS: QUETIAPINE FUMARATE 25 MG TABLET PO SCH (08:54)
[2019-08-26] MEDS: ATENOLOL 25 MG TABLET PO SCH (08:54)
[2019-08-26] MEDS: DONEPEZIL 5 MG TABLET PO SCH (08:54)
[2019-08-26] MEDS: DOCUSATE SODIUM 100 MG CAPSULE PO SCH (09:00)
[2019-08-26] MEDS: ENOXAPARIN SODIUM 30 MG/0.3 ML DISP.SYRIN SQ SCH (09:00)
[2019-08-26] MEDS: ASPIRIN EC 81 MG TABLET.DR PO SCH (09:00)
--- NOTE | 2019-08-26 09:00 | NUR ---
PATIENT REFUSED SOME OF 0900 MEDS. REFUSED LOVENOX, ASPIRIN, AND DOCUSATE. PATIENT WAS REORIENTED AND EDUCATION WAS PROVIDED. EXPLAINED BENEFITS OF THE MEDICATION, PATIENT WOULD NOT TAKE THE MEDICATION ANYWAY. BP MEDICATION WAS ALSO HELD DUE TO LOW BP.
[2019-08-26] MEDS ORDERED: LEVO500T90 PO (12:35)
--- NOTE | 2019-08-26 14:30 | NUR ---
PATIENT WAS PICKED UP BY [facility]. PATIENT IN STABLE CONDITION, GOING HOME WITH A CAREGIVER. PATIENT IS GOING TO BE UNDER 24/7 SUPERVISION BY CAREGIVER. D/C INSTRUCTIONS PROVIDED TO THE PATIENT AND THE CAREGIVER. IV LINE WAS TAKEN OUT OF THE PATIENT. ALL PATIENT NEEDS WERE MET. SAFETY MAINTAINED. DISCHARGE INSTRUCTIONS AND BELONGING LIST SIGNED AND PLACED IN THE CHART
[2019-08-26] MEDS ORDERED: LEVOFLOXACIN (250MG) 250 MG TABLET PO SCH (16:00)
[2019-09-01] MEDS ORDERED: MEGE40TA5 PO (07:51)
[2019-09-01] MEDS ORDERED: DOCU250C14 PO (07:51)
[2019-09-01] MEDS ORDERED: OSEL75CA PO (07:51)
== END 2019-08-26 14:39 | disposition home or self-care (01) | DRG 871 ==
LOC: ER 21:38 → TELE1 08-22 00:16 → MEDSG1 08-23 11:47
PROVIDERS: ADMIT Nurse Practitioner Acute Care; ATTEND Nurse Practitioner Acute Care
DX: A41.9 Sepsis, unspecified organism (principal); N17.0 Acute kidney failure with tubular necrosis; E43 Unspecified severe protein-calorie malnutrition; I21.4 Non-ST elevation (NSTEMI) myocardial infarction; N39.0 Urinary tract infection, site not specified; E87.1 Hypo-osmolality and hyponatremia; I10 Essential (primary) hypertension; M81.0 Age-related osteoporosis without current pathological fracture; E11.22 Type 2 diabetes mellitus with diabetic chronic kidney disease; E83.39 Other disorders of phosphorus metabolism; I12.9 Hypertensive chronic kidney disease with stage 1 through stage 4 chronic kidney disease, or unspecified chronic kidney disease; N18.9 Chronic kidney disease, unspecified; D63.8 Anemia in other chronic diseases classified elsewhere; E03.9 Hypothyroidism, unspecified; E11.65 Type 2 diabetes mellitus with hyperglycemia; E83.51 Hypocalcemia; E86.1 Hypovolemia; E87.6 Hypokalemia; G20 Parkinson's disease; F02.80 Dementia in other diseases classified elsewhere, unspecified severity, without behavioral disturbance, psychotic disturbance, mood disturbance, and anxiety; G30.9 Alzheimer's disease, unspecified; E78.5 Hyperlipidemia, unspecified; R40.2413 Glasgow coma scale score 13-15, at hospital admission; Z79.84 Long term (current) use of oral hypoglycemic drugs; B96.20 Unspecified Escherichia coli [E. coli] as the cause of diseases classified elsewhere; Z68.25 Body mass index [BMI] 25.0-25.9, adult
CPT/HCPCS: 36415; 70450-TC; 71045-TC; 76770-TC; 80048-TC; 80053-TC; 80061-TC; 80076-TC; 80305; 81000-TC; 82140-TC; 82550-TC; 82570-TC; 82962-TC; 83540-TC; 83605-TC; 83735-TC; 83880; 83970; 84100-TC; 84155; 84155-TC; 84165; 84300-TC; 84443-TC; 84484-TC; 85025-TC; 85730-TC; 87040-TC; 87081-TC; 87086-TC; 87186-TC; 93307-TC; 97112-TC; 97530-TC; G0378; G0480; J0696; J1650; J1815; J2270; J2405; J3480; J3490; J7030; J7040; J7050; J7060

== ENCOUNTER 2019-08-28 20:58 | Inpatient (IN) | payer MEDICARE, BC ==
[~2019-08-28] VITALS: Ht 154.9 cm; Wt 59.0 kg
[~2019-08-28 20:58] MED LIST changes: +ATOR80TA PO; +DONE5TAB34 PO; +GLIP5TAB13 PO; +LEVO500T90 PO; +LEVO50TA8 PO; +LORA-259 PO; +MEMA10TA PO; +QUET25TA PO; +SERT50TA PO
--- NOTE | 2019-08-28 21:15 | NUR ---
PT BIBRA 99 FROM HOME FOR C/O FEVER AND "TROUBLE BREATHING" PT WAS JUST RECENTLY D/C'D FROM [facility] ON [facility] PO FOR UTI. PT AAOX3, VSS, RR EVEN AND UNLABORED ON RA W/AD NOTED. PT CONNECTED TO THE MONITOR AND POX
[2019-08-28 21:40] LABS: BASOPHILS % (AUTO) 0.8 % (0.0-2.0); EOSINOPHILS % (AUTO) 0.2 % (0.0-6.0); HEMATOCRIT 28 % (33-45); HEMOGLOBIN 9.3 g/dL (11.5-14.8); LYMPHOCYTES # (AUTO) 0.8 /CMM (0.8-4.8); LYMPHOCYTES % (AUTO) 15.5 % (20.0-44.0); MEAN CORPUSCULAR HGB CONC 33 g/dl (31.0-36.0); MEAN CORPUSCULAR VOLUME 93 fL (82-100); MONOCYTES # (AUTO) 0.3 /CMM (0.1-1.30); MONOCYTES % (AUTO) 5.8 % (2.0-12.0); NEUTROPHILS # (AUTO) 4.1 /CMM (1.8-8.9); NEUTROPHILS % (AUTO) 77.7 % (43.0-81.0); PLATELET COUNT (AUTO) 278 /CMM (150-450); RED BLOOD CELL COUNT(AUTO) 2.97 MIL/uL (4.0-5.2); WHITE BLOOD COUNT (AUTO) 5.2 K/uL (4.3-11.0)
[2019-08-28 22:11] LABS: CALCIUM, SERUM 7.9 mg/dL (8.5-10.1); CREATININE 1.1 mg/dL (0.6-1.3); POTASSIUM 3.6 mmol/L (3.5-5.1)
[2019-08-28 22:16] LABS: APPEARANCE,URINE Clear (CLEAR); BILIRUBIN,URINE Negative (NEGATIVE); BLOOD, URINE Trace-intact Ery/uL (NEGATIVE); COLOR,URINE Yellow (YELLOW); KETONES,URINE Negative (NEGATIVE); LEUKOCYTE ESTERASE ,URINE Negative (NEGATIVE); NITRITE, URINE Negative (NEGATIVE); PH,URINE 5.5 (5.0-8.0); PROTEIN,URINE Negative (NEGATIVE); UGLUCOSE Negative (NEGATIVE); UROBILINOGEN,URINE 0.2 EU/dL (0.2)
[2019-08-28 22:17] LABS: ALBUMIN 2.2 g/dL (3.4-5.0); BILIRUBIN,DIRECT 0.1 mg/dL (0.0-0.2); BILIRUBIN,TOTAL 0.3 mg/dL (0.2-1.0); TOTAL PROTEIN, SERUM 6.2 g/dL (6.4-8.2)
[2019-08-28 22:25] LABS: BACTERIA,URINE Few /HPF (None Seen); SQUAMOUS EPITHELIAL CELL,UR Few /HPF (None Seen); WBC,URINE 0-2 /HPF (0-3)
--- NOTE | 2019-08-28 22:30 | NUR ---
URINE COLLECTED AND SENT TO LAB
[2019-08-28 23:12] LABS: MAGNESIUM 1.6 mg/dL (1.8-2.4); PHOSPHORUS 3.3 mg/dL (2.5-4.9)
[2019-08-29] MEDS ORDERED: IV NS 0.9% 1,000 ML IV PRN (00:20)
[2019-08-29] MEDS ORDERED: ONDANSETRON HCL/PF 4 MG/2 ML VIAL IVP PRN (00:30)
[2019-08-29] MEDS ORDERED: LEVOFLOXACIN 500 MG /D5W 100ML 500 MG/100 ML PIGGYBACK IV ONE (00:30)
[2019-08-29] MEDS ORDERED: ZOLPIDEM TARTRATE 5 MG TABLET PO PRN (00:30)
[2019-08-29] MEDS ORDERED: MORPHINE SULFATE INJ 2 MG/ML DISP.SYRIN IV PRN (00:30)
[2019-08-29] MEDS ORDERED: ACETAMINOPHEN 325 MG TABLET PO PRN (00:30)
[2019-08-29] MEDS ORDERED: MAGNESIUM HYDROXIDE 30 ML UDC PO PRN (00:30)
[2019-08-29] MEDS ORDERED: Magnesium 1GM/D5W 100ML PREMIX PIGGYBACK IV ONE (00:30)
[2019-08-29] MEDS ORDERED: Z GUARD REMEDY 2 OZ OINT TP PRN (00:30)
[2019-08-29] MEDS ORDERED: MAG HYDROX/AL HYDROX/SIMETH 30 ML UDC PO PRN (00:30)
[2019-08-29] MEDS ORDERED: HYDROCODONE/APAP 5/325MG 1 EACH TABLET PO PRN (00:30)
--- NOTE | 2019-08-29 00:40 | NUR ---
BED ASSIGNMENT 309-2
[2019-08-29] MEDS ORDERED: LEVOFLOXACIN 500 MG /D5W 100ML 500 MG in PREMIX 1 EA IV ONE (01:00)
--- NOTE | 2019-08-29 01:19 | NUR ---
REPORT GIVEN TO BARBARA DE
--- NOTE | 2019-08-29 01:54 | NUR ---
PT WAS TRANSFERRED TO 313 UNDER ACLS
[2019-08-29 02:00] VITALS: BP 126/69
[2019-08-29 02:30] VITALS: BP 129/69
--- NOTE | 2019-08-29 02:30 | NUR ---
DIAMOND SELECTORLOGISTICS TEAM LEADER NOTES RECEIVED PATIENT FROM ER VIA RDE LEON ACCOMPANIED BY ER STAFF AND TITLE ONE TEACHER. ALERT AND ORIENTED X 1-2, CONFUSED BUT VERBALLY RESPONSIVE. BREATHING REGULAR AND UNLABORED ON ROOM AIR. LEFT WRIST G22 IV LINE INTACT AND PATENT, FLUSHING WELL WITH NO BLEEDING OR S/S OF INFILTRATION NOTED. BODY ASSESSMENT DONE, SEEN WITH BILATERAL HAND BRUISES AND SACRAL MASD WITH OLD SCAR. PHOTO TAKEN, KEPT IN THE CHART. ATTACHED TO GALLEY COOK WITH INITIAL READING OF NSR AT 84bpm. BELONGINGS CHECKED AND ASKED THE CAREGIVER TO TAKE IT HOME. STARTED ON NS AT 75cc/hr, INFUSING WELL. PLACED A CALL TO CONSTAZNA CARR, AWAITING FOR CALL BACK. NO S/S OF PAIN/DISCOMFORT NOTED AT THIS TIME. BED LOW AND LOCKED ON SEMI FOWLERS POSITION. CALL LIGHT IN REACH. WILL CONTINUE TO MONITOR.
[2019-08-29 04:00] VITALS: BP 122/70
[2019-08-29] MEDS ORDERED: LEVOFLOXACIN 500 MG /D5W 100ML 100 ML IV ONE (04:12)
[2019-08-29] MEDS ORDERED: Magnesium 1GM/D5W 100ML PREMIX 100 ML IV ONE (04:13)
--- NOTE | 2019-08-29 05:30 | NUR ---
RESEARCH QUALITY ASSURANCE ANALYST NOTES CONSTANZA CARR CAME AND PROVIDED THE COPY OF ADVANCE DIRECTIVES THAT STATES PATIENT WISHED TO BE FULL CODE. COPY ATTACHED TO CHART.
--- NOTE | 2019-08-29 06:25 | NUR ---
CELL COVERER CLOSING NOTES PATIENT IN BED ALERT AND ORIENTED X 1-2, CONFUSED BUT VERBALLY RESPONSIVE. BREATHING REGULAR AND UNLABORED ON ROOM AIR. LEFT WRIST G22 IV LINE PATENT AND INFUSING WELL. MAINTAINED ON CARDIAC MONITORING WITH NSR AT 78bpm. NO S/S OF PAIN/DISCOMFORT NOTED AT THIS TIME. BED LOW AND LOCKED ON SEMI FOWLERS POSITION. CALL LIGHT IN REACH. WILL ENDORSE TO MORNING SHIFT FOR MAGDALENO.
--- NOTE | 2019-08-29 07:30 | NUR ---
SECURITY TRAINER NOTES PT IN BED, AWAKE, ALERT AND VERBALLY RESPONSIVE, NO COMPLAINT OF PAIN, RESPIRATIONS NORMAL AND NON LABORED, CALL LIGHT WITHIN REACH, CAREGIVER AT BEDSIDE, ISOLATION PRECAUTIONS OBSERVED.
[2019-08-29 08:00] VITALS: BP 105/53
[2019-08-29 08:37] LABS: BASOPHILS % (AUTO) 0.3 % (0.0-2.0); EOSINOPHILS % (AUTO) 0.2 % (0.0-6.0); HEMATOCRIT 24 % (33-45); HEMOGLOBIN 8.3 g/dL (11.5-14.8); LYMPHOCYTES # (AUTO) 1.1 /CMM (0.8-4.8); MEAN CORPUSCULAR HGB CONC 35 g/dl (31.0-36.0); MEAN CORPUSCULAR VOLUME 92 fL (82-100); MONOCYTES # (AUTO) 0.5 /CMM (0.1-1.30); MONOCYTES % (AUTO) 8.3 % (2.0-12.0); NEUTROPHILS % (AUTO) 72.2 % (43.0-81.0); PLATELET COUNT (AUTO) 253 /CMM (150-450); RED BLOOD CELL COUNT(AUTO) 2.58 MIL/uL (4.0-5.2); WHITE BLOOD COUNT (AUTO) 5.6 K/uL (4.3-11.0)
[2019-08-29 08:54] LABS: CALCIUM, SERUM 7.7 mg/dL (8.5-10.1); POTASSIUM 3.5 mmol/L (3.5-5.1)
[2019-08-29 09:00] LABS: ALBUMIN 1.9 g/dL (3.4-5.0); BILIRUBIN,TOTAL 0.3 mg/dL (0.2-1.0); PHOSPHORUS 3.3 mg/dL (2.5-4.9); TOTAL PROTEIN, SERUM 5.5 g/dL (6.4-8.2)
[2019-08-29] MEDS ORDERED: OSELTAMIVIR PHOSPHATE SUSP 6 MG/ML BOTTLE PO SCH (09:00)
[2019-08-29] MEDS: ATENOLOL 25 MG TABLET PO SCH (09:00)
[2019-08-29] MEDS ORDERED: OSELTAMIVIR PHOSPHATE 75 MG CAPSULE PO SCH (09:00)
[2019-08-29] MEDS ORDERED: LEVOTHYROXINE SODIUM 50 MCG TABLET PO SCH (09:00)
[2019-08-29] MEDS: ASPIRIN EC 81 MG TABLET.DR PO SCH (09:17)
[2019-08-29] MEDS: LEVOTHYROXINE SODIUM 50 MCG TABLET PO SCH (09:17)
[2019-08-29] MEDS: QUETIAPINE FUMARATE 25 MG TABLET PO SCH ×2 (09:17→17:00)
[2019-08-29] MEDS: glipiZIDE 5 MG TABLET PO SCH (09:17)
[2019-08-29] MEDS: OSELTAMIVIR PHOSPHATE 75 MG CAPSULE PO SCH (09:17)
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
[2019-08-29 16:00] VITALS: BP 105/47
--- NOTE | 2019-08-29 17:00 | NUR ---
RN MS NOTES SEROQUEL NOT GIVEN, TOO SLEEPY, DR. HOOD INFORMED THAT PT REFUSES TO EAT TODAY, ORDERED PSYCH EVAL, NOTED AND CARRIED OUT.
--- NOTE | 2019-08-29 18:27 | NUR ---
RN MS NOTES PT IN BED, ASLEEP, EASY TO AROUSE, NOT IN PAIN OR DISTRESS, CALL LIGHT [place] REACH, CAREGIVER AT BEDSIDE, KEPT WARM AND COMFORTABLE IN BED.
--- NOTE | 2019-08-29 20:00 | NUR ---
MS RN NOTES RECEIVED PATIENT AWAKE IN BED WITH NO DISTRESS NOTED. CALL LIGHT WITHIN REACH. CAREGIVER AT BEDSIDE. NO C/O PAIN OR DISCOMFORT. PERIPHERAL LINE INTACT AND PATENT. DROPLET ISOLATION OBSERVED AND MAINTAINED. BED IN LOW LOCK SETTING. ROOM FREE OF CLUTTER AND BELONGINGS KEPT NEAR BEDSIDE. WILL CONTINUE TO MONITOR
[2019-08-29 20:38] VITALS: BP 143/64
[2019-08-29] MEDS: ATORVASTATIN 10 MG TABLET PO SCH (22:01)
[2019-08-30] MEDS: LEVOFLOXACIN (250MG) 250 MG TABLET PO SCH (05:02)
--- NOTE | 2019-08-30 06:28 | NUR ---
MS RN NOTES PATIENT AWAKE IN BED WITH NO DISTRESS NOTED. CALL LIGHT WITHIN REACH. CAREGIVER AT BEDSIDE. NO C/O PAIN OR DISCOMFORT. ALL DUE MEDS GIVEN ORDERED WITH NO ASE NOTED. PERIPHERAL LINE INTACT AND PATENT. URINE SPECIMEN OBTAINED VIA STRAIGHT CATH AND TOLERATED WELL. SPECIMEN PICKED UP BY LAB. DROPLET ISOLATION OBSERVED AND MAINTAINED AT ALL TIMES. ROOM FREE OF CLUTTER AND BELONGINGS KEPT NEAR BEDSIDE. BED IN LOW LOCK SETTING. WILL ENDORSE TO ONCOMING SHIFT.
[2019-08-30 06:59] LABS: BASOPHILS % (AUTO) 0.3 % (0.0-2.0); EOSINOPHILS % (AUTO) 0.8 % (0.0-6.0); HEMATOCRIT 24 % (33-45); HEMOGLOBIN 8.1 g/dL (11.5-14.8); LYMPHOCYTES # (AUTO) 1.1 /CMM (0.8-4.8); LYMPHOCYTES % (AUTO) 27.9 % (20.0-44.0); MEAN CORPUSCULAR HGB CONC 34 g/dl (31.0-36.0); MEAN CORPUSCULAR VOLUME 92 fL (82-100); MONOCYTES # (AUTO) 0.2 /CMM (0.1-1.30); MONOCYTES % (AUTO) 6.2 % (2.0-12.0); NEUTROPHILS # (AUTO) 2.5 /CMM (1.8-8.9); NEUTROPHILS % (AUTO) 64.8 % (43.0-81.0); PLATELET COUNT (AUTO) 267 /CMM (150-450); WHITE BLOOD COUNT (AUTO) 3.9 K/uL (4.3-11.0)
--- NOTE | 2019-08-30 07:15 | NUR ---
MS RN NOTES PATIENT IN BED ALERT ORIENTED X 3. NO ACUTE DISTRESS NOTED. BREATHING UNLABORED. NO SOB NOTED. SAFETY MEASURES IN PLACE. CALL LIGHT WITHIN REACH. WILL CONTINUE TO MONITOR ACCORDINGLY.
[2019-08-30 07:25] LABS: CALCIUM, SERUM 7.7 mg/dL (8.5-10.1); PHOSPHORUS 3.7 mg/dL (2.5-4.9); POTASSIUM 3.6 mmol/L (3.5-5.1)
[2019-08-30 07:34] LABS: URINE SODIUM, RANDOM 29 mmol/l (40-220)
[2019-08-30 07:38] LABS: CREATININE, URINE 61.2 MG/DL (30.0-125.0); URINE TOTAL PROTEIN 20.2 mg/dL (0-11.9)
[2019-08-30 07:43] LABS: THYROID STIMULATING HORMONE 10.677 uIU/mL (0.358-3.74); URIC ACID 3.7 mg/dL (2.6-7.2)
[2019-08-30] MEDS: LEVOTHYROXINE SODIUM 50 MCG TABLET PO SCH (07:53)
[2019-08-30 08:00] VITALS: BP 132/68
[2019-08-30] MEDS: QUETIAPINE FUMARATE 25 MG TABLET PO SCH ×2 (09:13→17:10)
[2019-08-30] MEDS: ASPIRIN EC 81 MG TABLET.DR PO SCH (09:13)
[2019-08-30] MEDS: OSELTAMIVIR PHOSPHATE 75 MG CAPSULE PO SCH (09:14)
[2019-08-30] MEDS: ATENOLOL 25 MG TABLET PO SCH (09:14)
[2019-08-30] MEDS: glipiZIDE 5 MG TABLET PO SCH (09:14)
[2019-08-30] MEDS: MEGESTROL ACETATE 40 MG TABLET PO SCH ×2 (09:15→17:10)
--- NOTE | 2019-08-30 09:15 | NUR ---
MS RN NOTES PATIENT COMPLAINT OF RIGHT LEG PAIN, TYLENOL GIVEN ORDERED. BALL SHAGGER EDER HOOD AWARE
[2019-08-30 09:31] LABS: OSMOLALITY,URINE 365 mOS/kg (340-1090)
[2019-08-30 09:50] LABS: APPEARANCE,URINE CLEAR (CLEAR); BILIRUBIN,URINE NEGATIVE (NEGATIVE); BLOOD, URINE NEGATIVE Ery/uL (NEGATIVE); COLOR,URINE YELLOW (YELLOW); KETONES,URINE NEGATIVE (NEGATIVE); LEUKOCYTE ESTERASE ,URINE NEGATIVE (NEGATIVE); NITRITE, URINE NEGATIVE (NEGATIVE); PROTEIN,URINE NEGATIVE (NEGATIVE); UGLUCOSE NEGATIVE (NEGATIVE); UROBILINOGEN,URINE 0.2 EU/dL (0.2)
[2019-08-30 14:32] LABS: EOSINOPHIL,URINE None Seen
[2019-08-30 16:00] VITALS: BP 130/68
--- NOTE | 2019-08-30 16:19 | NUR ---
MS RN NOTES RECEIVED NEW ORDERS FROM EDER HOOD TO CHANGE DIET TO CCHO CARDIAC DIET
--- NOTE | 2019-08-30 18:58 | NUR ---
MS RN NOTES PATIENT IN BED ALERT ORIENTED X 3. NO ACUTE DISTRESS NOTED. BREATHING UNLABORED. NO SOB NOTED. NEEDS ATTENDED AND ANTICIPATED. KEPT CLEAN DRY AND COMFORTABLE. SAFETY MEASURES IN PLACE. CALL LIGHT WITHIN REACH. WILL ENDORSE TO NIGHT NURSE FOR CONTINUITY OF CARE
[2019-08-30 20:59] VITALS: BP 101/53
[2019-08-30] MEDS: ATORVASTATIN 10 MG TABLET PO SCH (21:22)
[2019-08-31] MEDS: LEVOFLOXACIN (250MG) 250 MG TABLET PO SCH (05:01)
[2019-08-31 06:35] LABS: BASOPHILS % (AUTO) 0.2 % (0.0-2.0); EOSINOPHILS % (AUTO) 0.9 % (0.0-6.0); HEMATOCRIT 27 % (33-45); HEMOGLOBIN 8.9 g/dL (11.5-14.8); LYMPHOCYTES # (AUTO) 1.5 /CMM (0.8-4.8); LYMPHOCYTES % (AUTO) 28.1 % (20.0-44.0); MEAN CORPUSCULAR HGB CONC 34 g/dl (31.0-36.0); MEAN CORPUSCULAR VOLUME 92 fL (82-100); MONOCYTES # (AUTO) 0.3 /CMM (0.1-1.30); MONOCYTES % (AUTO) 6.3 % (2.0-12.0); NEUTROPHILS # (AUTO) 3.4 /CMM (1.8-8.9); NEUTROPHILS % (AUTO) 64.5 % (43.0-81.0); PLATELET COUNT (AUTO) 289 /CMM (150-450); RED BLOOD CELL COUNT(AUTO) 2.88 MIL/uL (4.0-5.2); WHITE BLOOD COUNT (AUTO) 5.3 K/uL (4.3-11.0)
--- NOTE | 2019-08-31 06:38 | NUR ---
MS RN NOTES AWAKE & RESPONSIVE. NOT IN ANY DISTRESS. NO SOB NOTED. DENIES ANY PAIN OR DISCOMFORT AT THIS TIME. WITH IV-HL PATENT & INTACT. MONITORED ACCORDINGLY. CALL LIGHT WITHIN REACH. BED IN LOWEST POSITION. SR UP X 2 FOR SAFETY. WILL ENDORSE TO NEXT SHIFT.
[2019-08-31 06:50] LABS: CREATININE 0.9 mg/dL (0.6-1.3); MAGNESIUM 2.1 mg/dL (1.8-2.4); PHOSPHORUS 3.9 mg/dL (2.5-4.9); POTASSIUM 3.7 mmol/L (3.5-5.1)
--- NOTE | 2019-08-31 07:15 | NUR ---
MS RN NOTES PATIENT IN BED ALERT ORIENTED X2. NO ACUTE DISTRESS NOTED. BREATHING UNLABORED. NO SOB NOTED. NEEDS ATTENDED AND ANTICIPATED. KEPT CLEAN DRY AND COMFORTABLE. SAFETY MEASURES IN PLACE. CALL LIGHT WITHIN REACH. WILL ENDORSE TO NIGHT NURSE FOR CONTINUITY OF CARE
[2019-08-31] MEDS: LEVOTHYROXINE SODIUM 50 MCG TABLET PO SCH (08:03)
[2019-08-31 08:11] VITALS: BP 120/64
[2019-08-31] MEDS: ASPIRIN EC 81 MG TABLET.DR PO SCH (08:30)
[2019-08-31] MEDS: OSELTAMIVIR PHOSPHATE 75 MG CAPSULE PO SCH (08:30)
[2019-08-31] MEDS: glipiZIDE 5 MG TABLET PO SCH (08:31)
[2019-08-31] MEDS: MEGESTROL ACETATE 40 MG TABLET PO SCH ×2 (08:31→16:33)
[2019-08-31] MEDS: QUETIAPINE FUMARATE 25 MG TABLET PO SCH ×2 (08:31→16:33)
[2019-08-31] MEDS: ATENOLOL 25 MG TABLET PO SCH (08:31)
[2019-08-31] MEDS ORDERED: MAGNESIUM HYDROXIDE 30 ML UDC PO ONE (10:30)
[2019-08-31 16:00] VITALS: BP 104/50
[2019-08-31] MEDS: DOCUSATE SODIUM 250 MG CAPSULE PO SCH (16:33)
--- NOTE | 2019-08-31 18:54 | NUR ---
MS RN NOTES PATIENT IN BED ALERT ORIENTED X 2. NO ACUTE DISTRESS NOTED. BREATHING UNLABORED. NO SOB NOTED. NEEDS ATTENDED AND ANTICIPATED. KEPT CLEAN DRY AND COMFORTABLE. SAFETY MEASURES IN PLACE. CALL LIGHT WITHIN REACH. WILL ENDORSE TO NIGHT NURSE FOR CONTINUITY OF CARE
[2019-08-31 20:00] VITALS: BP 94/52
[2019-09-01] MEDS ORDERED: ONDANSETRON HCL/PF 4 MG/2 ML VIAL IV PRN (03:30)
[2019-09-01] MEDS ORDERED: ALBUTEROL FS 2.5 MG/3 ML VIAL.NEB NEB PRN (03:30)
--- NOTE | 2019-09-01 04:05 | NUR ---
RT NOTES FOUND PT ON 3LPM NC. BILATERAL WHEEZING/RONCHI. GIVEN PRN TX. RODRIGUEZ TX WELL. NO S/S OF DISTRESS OR SOB. PT AWAKE. SPO2 98-99%. WILL CONTINUE TO MONITOR.
[2019-09-01] MEDS: LEVOFLOXACIN (250MG) 250 MG TABLET PO SCH (05:10)
--- NOTE | 2019-09-01 06:09 | NUR ---
MS RN NOTES AWAKE & RESPONSIVE. NOT IN ANY DISTRESS. NO SOB NOTED. DENIES ANY PAIN OR DISCOMFORT AT THIS TIME. WITH IV-HL PATENT & INTACT. AM CARE DONE. MONITORED ACCORDINGLY. CALL LIGHT WITHIN REACH. BED IN LOWEST POSITION. SR UP X 3 WITH BED ALARM ON FOR SAFETY. WILL ENDORSE TO NEXT SHIFT.
[2019-09-01 07:48] LABS: BASOPHILS % (AUTO) 0.1 % (0.0-2.0); EOSINOPHILS % (AUTO) 0.4 % (0.0-6.0); HEMATOCRIT 24 % (33-45); HEMOGLOBIN 8.2 g/dL (11.5-14.8); LYMPHOCYTES # (AUTO) 1.7 /CMM (0.8-4.8); MEAN CORPUSCULAR HGB CONC 34 g/dl (31.0-36.0); MEAN CORPUSCULAR VOLUME 93 fL (82-100); MONOCYTES # (AUTO) 0.4 /CMM (0.1-1.30); MONOCYTES % (AUTO) 5.6 % (2.0-12.0); NEUTROPHILS # (AUTO) 4.4 /CMM (1.8-8.9); NEUTROPHILS % (AUTO) 67.9 % (43.0-81.0); PLATELET COUNT (AUTO) 286 /CMM (150-450); RED BLOOD CELL COUNT(AUTO) 2.62 MIL/uL (4.0-5.2); WHITE BLOOD COUNT (AUTO) 6.4 K/uL (4.3-11.0)
[2019-09-01] MEDS: LEVOTHYROXINE SODIUM 50 MCG TABLET PO SCH (07:50)
[2019-09-01] MEDS ORDERED: OSEL75CA PO (07:51)
[2019-09-01] MEDS ORDERED: DOCU250C14 PO (07:51)
[2019-09-01] MEDS ORDERED: MEGE40TA5 PO (07:51)
[2019-09-01 08:12] LABS: CALCIUM, SERUM 7.9 mg/dL (8.5-10.1); CREATININE 1.1 mg/dL (0.6-1.3); PHOSPHORUS 3.4 mg/dL (2.5-4.9); POTASSIUM 3.5 mmol/L (3.5-5.1)
[2019-09-01 08:24] VITALS: BP 128/56
[2019-09-01] MEDS: OSELTAMIVIR PHOSPHATE 75 MG CAPSULE PO SCH (09:03)
[2019-09-01] MEDS: ASPIRIN EC 81 MG TABLET.DR PO SCH (09:03)
[2019-09-01] MEDS: glipiZIDE 5 MG TABLET PO SCH (09:03)
[2019-09-01] MEDS: DOCUSATE SODIUM 250 MG CAPSULE PO SCH ×2 (09:03→16:42)
[2019-09-01] MEDS: MEGESTROL ACETATE 40 MG TABLET PO SCH ×2 (09:03→16:41)
[2019-09-01] MEDS: ATENOLOL 25 MG TABLET PO SCH (09:04)
[2019-09-01] MEDS: QUETIAPINE FUMARATE 25 MG TABLET PO SCH ×2 (09:04→16:42)
[2019-09-01 16:18] VITALS: BP 110/50
--- NOTE | 2019-09-01 18:52 | NUR ---
MS WINDOWS ARCHITECT NOTES PATIENT DISCHARGE HOME WITH STABLE VITAL SIGNS, NO ACUTE DISTRESS NOTED. BREATHING UNLABORED. NO SOB NOTED. ALERT ORIENTED X 2. NO FACIAL GRIMACING NOTED. DISCHARGE INSTRUCTIONS GIVEN TO THE CAREGIVER INCLUDING FOLLOW UP WITH PRIMARY , CONTINUE NEW PRESCRIPTIONS. HOLD STATIN WHILE TAKING MEGACE, VERBALIZED UNDERSTANDING. PATIENT REFUSED PHOTO TAKEN. ALL BELONGINGS ACCOUNTED FOR. PICKED UP VIA AMBULANCE IN A GURNEY ACCOMPANIED BY 2 EMT PERSONNEL AND CAREGIVER IN STABLE CONDITION. IV ACCESS REMOVED, NO REDNESS NO BLEEDING, NO SWELLING NOTED.
== END 2019-09-01 18:28 | disposition home health service (06) | DRG 193 ==
LOC: ER 21:08 → TELE 08-29 00:46 → MED 08-29 09:17
PROVIDERS: ADMIT Registered Nurse; ATTEND Registered Nurse
DX: J10.1 Influenza due to other identified influenza virus with other respiratory manifestations (principal); I21.A1 Myocardial infarction type 2; E43 Unspecified severe protein-calorie malnutrition; G92 Toxic encephalopathy; N39.0 Urinary tract infection, site not specified; E87.1 Hypo-osmolality and hyponatremia; I10 Essential (primary) hypertension; M81.0 Age-related osteoporosis without current pathological fracture; E11.9 Type 2 diabetes mellitus without complications; D63.8 Anemia in other chronic diseases classified elsewhere; Z90.10 Acquired absence of unspecified breast and nipple; Z87.440 Personal history of urinary (tract) infections; Z83.3 Family history of diabetes mellitus; Z82.62 Family history of osteoporosis; Z82.49 Family history of ischemic heart disease and other diseases of the circulatory system; Z81.8 Family history of other mental and behavioral disorders; Z79.899 Other long term (current) drug therapy; Z79.890 Hormone replacement therapy; Z79.84 Long term (current) use of oral hypoglycemic drugs; Z79.82 Long term (current) use of aspirin; F02.80 Dementia in other diseases classified elsewhere, unspecified severity, without behavioral disturbance, psychotic disturbance, mood disturbance, and anxiety; G20 Parkinson's disease; E78.5 Hyperlipidemia, unspecified; E83.42 Hypomagnesemia; E03.9 Hypothyroidism, unspecified; G30.9 Alzheimer's disease, unspecified; B96.89 Other specified bacterial agents as the cause of diseases classified elsewhere; I25.10 Atherosclerotic heart disease of native coronary artery without angina pectoris; N28.9 Disorder of kidney and ureter, unspecified
CPT/HCPCS: 36415; 71045-TC; 80048-TC; 80053-TC; 80076-TC; 81000-TC; 82010-TC; 82570-TC; 82728-TC; 83540-TC; 83605-TC; 83735-TC; 83935-TC; 84100-TC; 84155-TC; 84300-TC; 84439-TC; 84443-TC; 84484-TC; 84550-TC; 85025-TC; 85730-TC; 86850-TC; 87040-TC; 87081-TC; 87086-TC; 93970-TC; 97530-TC; A4216; G0378; J1956; J2405; J3475; J7030

== ENCOUNTER 2020-02-26 10:36 | Inpatient (IN) | payer MEDICARE, BC ==
[2020-02-26] VITALS (12 sets, daily range): BP systolic 88–146; BP diastolic 47–88
[~2020-02-26] VITALS: Ht 152.4 cm; Wt 54.0 kg
[~2020-02-26 10:36] MED LIST changes: -ATOR10TA PO; -ATOR80TA PO; +DOCU250C14 PO; -DONE5TAB34 PO; -LEVO25TA2 PO; -LEVO500T90 PO; -LORA-259 PO; +MEGE40TA5 PO; +OSEL75CA PO
--- NOTE | 2020-02-26 10:45 | NUR ---
BIB ra frm home c/o hyperglycemia BS >600 in field. On room air, breathing evenly and unlabored. connected to the monitor and pulse ox. kept comfortable, will continue to monitor accordingly.
[2020-02-26] MEDS ORDERED: DONE5TAB34 PO (10:57)
[2020-02-26] MEDS ORDERED: IV NS 0.9% 1,000 ML BAG IV ONE (11:00)
[2020-02-26 11:31] LABS: BASOPHILS % (AUTO) 0.4 % (0.0-2.0); LYMPHOCYTES # (AUTO) 0.7 /CMM (0.8-4.8); LYMPHOCYTES % (AUTO) 6.9 % (20.0-44.0); MEAN CORPUSCULAR HGB CONC 30 g/dl (31.0-36.0); MEAN CORPUSCULAR VOLUME 90 fL (82-100); MONOCYTES # (AUTO) 0.6 /CMM (0.1-1.30); NEUTROPHILS # (AUTO) 9.1 /CMM (1.8-8.9); NEUTROPHILS % (AUTO) 86.7 % (43.0-81.0); PLATELET COUNT (AUTO) 378 /CMM (150-450); WHITE BLOOD COUNT (AUTO) 10.5 K/uL (4.3-11.0)
[2020-02-26 11:35] LABS: CALCIUM, SERUM 8.2 mg/dL (8.5-10.1); CARBON DIOXIDE 18 mmol/L (21-32); CHLORIDE 101 mmol/L (98-107); CREATININE 1.8 mg/dL (0.6-1.3); POTASSIUM 4.7 mmol/L (3.5-5.1); SODIUM SERUM 133 mmol/L (136-145); UREA NITROGEN, BLOOD 72 mg/dL (7-18)
[2020-02-26 11:38] LABS: GLUCOSE 493 mg/dL (74-106)
[2020-02-26 11:43] LABS: APPEARANCE,URINE CLEAR (CLEAR); BILIRUBIN,URINE NEGATIVE (NEGATIVE); BLOOD, URINE NEGATIVE Ery/uL (NEGATIVE); COLOR,URINE YELLOW (YELLOW); KETONES,URINE NEGATIVE (NEGATIVE); LEUKOCYTE ESTERASE ,URINE NEGATIVE (NEGATIVE); NITRITE, URINE NEGATIVE (NEGATIVE); PH,URINE 5.5 (5.0-8.0); PROTEIN,URINE NEGATIVE (NEGATIVE); UGLUCOSE >=1000 mg/dL (NEGATIVE); UROBILINOGEN,URINE 0.2 EU/dL (0.2)
[2020-02-26 11:51] LABS: ALANINE AMINOTRANSFERASE 14 U/L (12-78); ALBUMIN 2.9 g/dL (3.4-5.0); ALKALINE PHOSPHATASE 69 U/L (46-116); BILIRUBIN,DIRECT 0.3 mg/dL (0.0-0.2); BILIRUBIN,TOTAL 0.6 mg/dL (0.2-1.0); TOTAL PROTEIN, SERUM 6.4 g/dL (6.4-8.2)
[2020-02-26 11:52] LABS: RED BLOOD CELL COUNT(AUTO) 1.18 MIL/uL (4.0-5.2)
[2020-02-26] MEDS ORDERED: CEFTRIAXONE 1GM BAG (ER ONLY) 50 ML IV ONE (11:58)
[2020-02-26 11:59] LABS: HEMOGLOBIN 3.2 g/dL (11.5-14.8)
[2020-02-26] MEDS ORDERED: INSULIN REGULAR, HUMAN 100 UNIT/ML 10 ML VIAL ONE (11:59)
[2020-02-26 12:00] LABS: HEMATOCRIT 11 % (33-45)
[2020-02-26] MEDS ORDERED: CEFTRIAXONE 1GM BAG (ER ONLY) 1 GM/50 ML PIGGYBACK IV ONE (12:00)
[2020-02-26] MEDS ORDERED: INSULIN REGULAR, HUMAN 100 UNIT/ML 10 ML VIAL IV ONE (12:00)
[2020-02-26 12:05] LABS: ASPARTATE AMINOTRANSFERASE 14 U/L (15-37)
[2020-02-26] MEDS ORDERED: PANTOPRAZOLE 40 MG VIAL ONE (12:07)
[2020-02-26 12:11] LABS: BACTERIA,URINE None seen /HPF (None Seen); SQUAMOUS EPITHELIAL CELL,UR Few /HPF (None Seen); WBC,URINE 0-2 /HPF (0-3)
[2020-02-26 12:12] LABS: RBC,URINE 0-2 /HPF (0-2)
--- NOTE | 2020-02-26 12:15 | NUR ---
COVID SWAB DONE AND SENT TO LAB
[2020-02-26] MEDS ORDERED: PANTOPRAZOLE 40 MG VIAL IV ONE (12:30)
--- NOTE | 2020-02-26 13:22 | NUR ---
report given to Grecia JIMENEZ for papa
--- NOTE | 2020-02-26 14:00 | NUR ---
PRIMARY CLASS TEACHER NOTES RECEIVED PT BROUGHT IN VIA GURNEY BY BUSINESS LAW INSTRUCTOR AND EMT. NO CARDIAC OR RESPIRATORY DISTRESS NOTED. NO SOB NOTED. PLACED PT ON SUPPLEMENTAL O2 AT 2L/MIN VIA NC SATURATING AT 92% ON ROOM AIR. NOT PT SATURATING AT 96% WITH 2L OF O2 VIA NASAL CANULLA. PLACED PT ON CARDIAC TELE MONITOR SHOWING NSR WITH HR OF 81. IV ACCESS NOTED ON R FOREARM G18 AND L UPPER ARM G20. IV ACCESS INTACT AND PATENT AND FLUSHING WELL. PER ER STAFF, PT IS DNR /DNI. HOWEVER, NO POLST FOUND IN THE CHART. DUNN CATH IN PLACE. INTACT AND PATENT AND DRAINING WITH CLEAR YELLOW URINE. SAFETY PRECAUTIONS IN PLACE. BED LOCKED AND IN LOW POSITION. SIDE RAILS UP X2. BED ALARM ON. CALL LIGHT WITHIN REACH. WILL CONT TO MONITOR.
--- NOTE | 2020-02-26 14:04 | NUR ---
wheeled patient via gurney accompanied by RN and emt in no distress. RN at bedside to assume care.
[2020-02-26] MEDS ORDERED: ACETAMINOPHEN 325 MG TABLET PO PRN (14:30)
[2020-02-26] MEDS ORDERED: MAGNESIUM HYDROXIDE 30 ML UDC PO PRN (14:30)
[2020-02-26] MEDS ORDERED: ONDANSETRON HCL/PF 4 MG/2 ML VIAL IVP PRN (14:30)
[2020-02-26] MEDS ORDERED: HYDROCODONE/APAP 5/325MG TABLET PO PRN (14:30)
[2020-02-26] MEDS ORDERED: ZOLPIDEM TARTRATE 5 MG TABLET PO PRN (14:30)
[2020-02-26] MEDS ORDERED: Z GUARD REMEDY 2 OZ OINT TP PRN (14:30)
[2020-02-26] MEDS ORDERED: DEXTROSE 50%-WATER 50 ML DISP.SYRIN IV PRN ×2 (14:30→17:00)
--- NOTE | 2020-02-26 14:30 | NUR ---
DR. MAY/MAITE PER DR. MAY, THIS PT IS HIS PT FROM OUTPT. I NOTED THAT DR. MAY HAS PLACED IN ADMITTING ORDERS. BUT DR. ARORA WILL HELP ADMIT.
[2020-02-26 14:38] LABS: CREATININE, URINE 164.2 MG/DL (30.0-125.0); URINE TOTAL PROTEIN 86.3 mg/dL (0-11.9)
--- NOTE | 2020-02-26 14:45 | NUR ---
CONSENT FOR BLOOD CONSENT FOR BLOOD TRANSFUSION OBTAINED FROM [facility]. PTS POA. RP AGREED TO BLOOD TRANSFUSION.
[2020-02-26 15:28] LABS: LYMPHOCYTES % (MANUAL) 10 % (16-48); NEUTROPHILS % (MANUAL) 87 (42-76)
[2020-02-26 15:30] LABS: MONOCYTES % (MANUAL) 3 % (0-11.0)
--- NOTE | 2020-02-26 15:30 | NUR ---
DNR/DNI DR. MAY CURRENTLY ON THE FLOOR. PER MD, HE SPOKE TO THE FAMILY AND ACCORDING TO HIM PT WILL BE DNR/DNI. HE STATED HE WILL PUT THE ORDER IN.
--- NOTE | 2020-02-26 15:35 | NUR ---
LACTIC ACID LEVELS LACTIC ACID LEVELS RELAYED TO DR. MAY AND TODD ARORA. NO NEW ORDERS GIVEN.
[2020-02-26] MEDS: PANTOPRAZOLE 40 MG VIAL IV SCH ×2 (15:57→23:09)
[2020-02-26] MEDS: MEGESTROL ACETATE 40 MG TABLET PO SCH (16:17)
[2020-02-26] MEDS: QUETIAPINE FUMARATE 25 MG TABLET PO SCH (16:17)
[2020-02-26] MEDS: DOCUSATE SODIUM 250 MG CAPSULE PO SCH (16:17)
[2020-02-26] MEDS: BLOOD SUGAR DIAGNOSTIC 1 EACH STRIP IN SCH ×4 (16:19→23:24)
[2020-02-26] MEDS: INSULIN REGULAR, HUMAN 100 UNIT/ML 3 ML VIAL SQ PRN ×3 (17:14→23:26)
--- NOTE | 2020-02-26 19:00 | NUR ---
BLOOD TRANSFUSION 1ST UNIT OF PRBC TRANSFUSION COMPLETED. PENDING FOR 2ND UNIT.
--- NOTE | 2020-02-26 19:34 | NUR ---
RN CLOSING NOTES PT IS BED AWAKE CONFUSED. NO CARDIAC OR RESPIRATORY DISTRESS NOTED. NO SOB NOTED. PT SATURATING AT 96% WITH 2L OF O2 VIA NASAL CANULLA. PLACED PT ON CARDIAC TELE MONITOR SHOWING NSR WITH HR OF 81. IV ACCESS NOTED ON R FOREARM G18 AND L UPPER ARM G20. IV ACCESS INTACT AND PATENT AND FLUSHING WELL. DUNN CATH IN PLACE. INTACT AND PATENT AND DRAINING WITH CLEAR YELLOW URINE. SAFETY PRECAUTIONS IN PLACE. BED LOCKED AND IN LOW POSITION. SIDE RAILS UP X2. BED ALARM ON. CALL LIGHT WITHIN REACH. WILL CONT TO MONITOR. Addendum: 02/26/20 at 1937 by MAUDE ANDRES RN ENDORSE TO SALES FORCE ADMINISTRATOR NURSE TO START 2ND UNIT OF PRBC AND 1 UNIT OF PLASMA AND NEED FOR STOOL FOR OB.
--- NOTE | 2020-02-26 19:45 | NUR ---
PHOTOGRAMMETRIC ENGINEER OPENING NOTES RECEIVED PATIENT FROM MORNING SHIFT ALERT AND ORIENTED X 1. BREATHING REGULAR AND UNLABORED ON OXYGEN AT 2L/MIN. RIGHT FOREARM G18 AND LEFT UPPER ARM G20 IV LINES INTACT AND FLUSHING WELL. ON CARDIAC MONITORING WITH NSR AT 76bpm. DUNN CATH PATENT, DRAINING CLEAR YELLOW URINE WITH MODERATE AMOUNT ON BAG. NO S/S OF PAIN/DISCOMFORT SEEN AT THIS TIME. BLE DVT PUMP ON. BED LOW AND LOCKED ON SEMI FOWLERS POSITION. CALL LIGHT IN REACH. WILL CONTINUE TO MONITOR.
--- NOTE | 2020-02-26 22:00 | NUR ---
END FRAZER NOTES IV SITE REINSERTED ON LEFT FOREARM G20 WITH BLOOD BACK FLOW, FLUSHING WELL.
--- NOTE | 2020-02-26 22:25 | NUR ---
CARBON DIOXIDE OPERATOR NOTES 2ND BAG OF PRBC STARTED, VITAL SIGNS CHECKED PRIOR TO INFUSION. WILL CLOSELY MONITOR FOR TRANSFUSION REACTIONS.
[2020-02-27] VITALS (16 sets, daily range): BP systolic 102–132; BP diastolic 43–79
[2020-02-27] MEDS: BLOOD SUGAR DIAGNOSTIC 1 EACH STRIP IN SCH ×10 (01:04→21:59)
[2020-02-27] MEDS: INSULIN REGULAR, HUMAN 100 UNIT/ML 3 ML VIAL SQ PRN ×4 (01:05→22:00)
--- NOTE | 2020-02-27 01:30 | NUR ---
LAMINATION ASSEMBLER NOTES BLOOD TRANSFUSION DONE, VITAL SIGNS TAKEN AND RECORDED.
--- NOTE | 2020-02-27 06:30 | NUR ---
ALODIZE MACHINE OPERATOR NOTES NOTED WITH BLOOD SUGAR OF 46, SNACKS/PUDDING GIVEN. RECHECK BLOOD SUGAR AFTER 1HR RESULT WAS 52mg/dl. D50 INJECTION GIVEN. WILL CONTINUE TO MONITOR.
--- NOTE | 2020-02-27 06:40 | NUR ---
HOT TAR ROOFER CLOSING NOTES PATIENT IN BED ALERT AND ORIENTED X 1. AFEBRILE WITH NO S/S OF DISTRESS OBSERVED. RIGHT AND LEFT FOREARM G20 IV LINES INTACT AND FLUSHING WELL. ON CARDIAC MONITORING WITH NSR AT 71bpm. RECHECK BLOOD SUGAR AFTER D50 INJECTION, 198mg/dl. DUNN CATH PATENT, DRAINING CLEAR ELBA COLORED URINE WITH 400cc OUTPUT. NO S/S OF PAIN/DISCOMFORT SEEN AT THIS TIME. BED LOW AND LOCKED ON SEMI FOWLERS POSITION. CALL LIGHT IN REACH. WILL ENDORSE TO MORNING SHIFT FOR MAGDALENO.
--- NOTE | 2020-02-27 08:00 | NUR ---
RN NOTES RECEIVED PATIENT IN THE BED CONFUSED RESPONDING NAME, RESPONDING INTERNAL STIMULI, PATIENT HAS NO ACUTE RESPIRATORY DISTRESS, V/S TAKEN STABLE, PATIENT TELE SR-64. PATIENT HAS NO ACUTE RESPIRATORY DISTRESS, TOTAL CARE, FEEDER. F/C DRAINING YELLOW OUTPUT, INCONTINENT, OF BOWL, ASSIST TURN AND REPOSTION Q 2 HR. IV ACCESS ON LEFT FA INTACT HL. SAFETY PRECAUTION MAINTAINED ALL THE TIME.
[2020-02-27 08:25] LABS: BASOPHILS # (AUTO) 0.1 /CMM (0.0-0.2); BASOPHILS % (AUTO) 0.6 % (0.0-2.0); EOSINOPHILS % (AUTO) 0.7 % (0.0-6.0); LYMPHOCYTES # (AUTO) 0.7 /CMM (0.8-4.8); LYMPHOCYTES % (AUTO) 7.6 % (20.0-44.0); MEAN CORPUSCULAR HGB CONC 33 g/dl (31.0-36.0); MEAN CORPUSCULAR VOLUME 87 fL (82-100); MONOCYTES # (AUTO) 0.9 /CMM (0.1-1.30); NEUTROPHILS % (AUTO) 82.1 % (43.0-81.0); PLATELET COUNT (AUTO) 264 /CMM (150-450); RED BLOOD CELL COUNT(AUTO) 2.12 MIL/uL (4.0-5.2); WHITE BLOOD COUNT (AUTO) 9.7 K/uL (4.3-11.0)
[2020-02-27 08:32] LABS: CALCIUM, SERUM 8.1 mg/dL (8.5-10.1); CREATININE 1.2 mg/dL (0.6-1.3); MAGNESIUM 2.4 mg/dL (1.8-2.4); PHOSPHORUS 2.6 mg/dL (2.5-4.9); POTASSIUM 3.3 mmol/L (3.5-5.1)
[2020-02-27 08:33] LABS: HEMOGLOBIN 6.2 g/dL (11.5-14.8)
[2020-02-27 08:34] LABS: HEMATOCRIT 19 % (33-45)
--- NOTE | 2020-02-27 08:35 | NUR ---
RN NOTES GET CALL FROM LAB FOR CRITICAL LABS HEMOGLOBIN 6.2. LEFT MASSAGE HOSPITALIST Dr SLAUGHTER, WAITING FOR RESPONSE.
[2020-02-27] MEDS: ATENOLOL 25 MG TABLET PO SCH (09:00)
[2020-02-27 09:43] LABS: LYMPHOCYTES % (MANUAL) 15 % (16-48); MONOCYTES % (MANUAL) 8 % (0-11.0); NEUTROPHILS % (MANUAL) 77 (42-76)
[2020-02-27] MEDS: MEGESTROL ACETATE 40 MG TABLET PO SCH ×2 (09:49→16:45)
[2020-02-27] MEDS: PANTOPRAZOLE 40 MG VIAL IV SCH ×2 (09:49→20:32)
[2020-02-27] MEDS: SERTRALINE HCL 50 MG TABLET PO SCH (09:50)
[2020-02-27] MEDS: DOCUSATE SODIUM 250 MG CAPSULE PO SCH ×2 (09:50→16:45)
[2020-02-27] MEDS: MEMANTINE HCL 5 MG TABLET PO SCH (09:50)
[2020-02-27] MEDS: LEVOTHYROXINE SODIUM 50 MCG TABLET PO SCH (09:50)
[2020-02-27] MEDS: QUETIAPINE FUMARATE 25 MG TABLET PO SCH ×2 (09:50→16:45)
[2020-02-27] MEDS: DONEPEZIL 5 MG TABLET PO SCH (09:54)
[2020-02-27] MEDS ORDERED: NEUTRA PHOS 1 POWD.PACKET PO ONE (10:00)
[2020-02-27] MEDS ORDERED: POTASSIUM CHLORIDE 20 MEQ POWDER PACKET PO SCH (10:00)
--- NOTE | 2020-02-27 10:30 | NUR ---
rn notes get TO order for midline insertion.
[2020-02-27 14:11] LABS: THYROID STIMULATING HORMONE 2.306 uIU/mL (0.358-3.74)
--- NOTE | 2020-02-27 15:00 | NUR ---
rn notes get midline on right upper arm midline gauge 18, and will willing to transfuse one unit of blood per hospitalist order. patient dnr/dni.
--- NOTE | 2020-02-27 15:47 | NUR ---
rn notes started blood transfusion at this [id number] ml at 50 ml/hr on right upper midline. patient confused a/o x1, v/s taken bp -96/50/ p-65, t-97.8,r-19, o2-100 on o2-2l nc. patient refused pain, no SOB noted, patient total care. safety precaution maintained all the time.
--- NOTE | 2020-02-27 16:03 | NUR ---
rn notes PATIENT HAS NO S/S OF BLOOD TRANSFUSION ,V/S TAKEN BP 112/59, R-18, T-98.8, O2-100 RA, P-64, NO SOB, REFUSED PAIN, INCREASE RATE TO 75 ML/HR, CONTINUED MONITORING.
--- NOTE | 2020-02-27 16:34 | NUR ---
RN NOTES PATIENT STABLE REFUSED PAIN, AWAKE, NO SOB NOTED, V/S TAKEN BP -110/52, P-66, R-17, T-97.6, O2-100 2LNC, INCREASE TRANSFUSION RATE AT 125 ML/HR INTACT. CONTINUED MONITORING.
--- NOTE | 2020-02-27 17:30 | NUR ---
rn notes v/s taken bp 111/43, p58, r-17, t-97.6, o2-100 on 2lnc, r-17. increase 125 ml/hr , patient tolerated transfusion well, refused pain, no sob, administered scheduled medication, continued monitoring.
--- NOTE | 2020-02-27 18:45 | NUR ---
rn notes finished one unit of blood transfusion at this time., patient resting in the bed v.s taken bp 102/47, p-58, r-17, t-97.6, o2-100 on 2l. refused pain. no sob. call light within to reach. assist turn and reposition q 2 hr. endorsed oncoming nurse follow plan of care.
--- NOTE | 2020-02-27 19:45 | NUR ---
MS RN OPENING NOTES RECEIVED PATIENT FROM MORNING SHIFT ALERT AND ORIENTED X 1. BREATHING REGULAR AND UNLABORED ON OXYGEN AT 2L/MIN. RIGHT UPPER ARM MIDLINE INTACT AND FLUSHING WELL. DUNN CATH PATENT, DRAINING CLEAR ELBA COLORED URINE WITH MODERATE AMOUNT ON BAG. NO S/S OF PAIN/DISCOMFORT SEEN AT THIS TIME. BLE DVT PUMP ON. BED LOW AND LOCKED ON SEMI FOWLERS POSITION. CALL LIGHT IN REACH. WILL CONTINUE TO MONITOR.
--- NOTE | 2020-02-27 22:00 | NUR ---
MS RN NOTES NOTED WITH BLOOD SUGAR OF 74, SNACKS/PUDDING GIVEN. RECHECK BLOOD SUGAR AFTER 1HR RESULT WAS 110mg/dl.
[2020-02-28] MEDS: BLOOD SUGAR DIAGNOSTIC 1 EACH STRIP IN SCH ×7 (00:55→21:34)
[2020-02-28] MEDS: INSULIN REGULAR, HUMAN 100 UNIT/ML 3 ML VIAL SQ PRN ×3 (00:56→06:35)
--- NOTE | 2020-02-28 05:00 | NUR ---
MS RN NOTES BS FROM 2100 TO 0500 RANGING 75-110mg/dl, INSULIN COVERAGES NOT GIVEN. SNACKS PROVIDED, ASSISTED ON FEEDING. WILL CONTINUE TO MONITOR.
--- NOTE | 2020-02-28 06:45 | NUR ---
MS RN CLOSING NOTES PATIENT IN BED ALERT AND ORIENTED X 1-2. AFEBRILE WITH NO S/S OF DISTRESS OBSERVED. RIGHT UPPER ARM MIDLINE INTACT AND FLUSHING WELL. BLOOD SUGAR 166mg/dl; 3UNITS REGULAR INSULIN GIVEN SQ, PUDDING GIVEN. DUNN CATH PATENT, DRAINING CLEAR ELBA COLORED URINE WITH 350cc OUTPUT. NO S/S OF PAIN/DISCOMFORT SEEN AT THIS TIME. BED LOW AND LOCKED ON SEMI FOWLERS POSITION. CALL LIGHT IN REACH. WILL ENDORSE TO MORNING SHIFT FOR MAGDALENO.
[2020-02-28 07:07] LABS: BASOPHILS # (AUTO) 0.1 /CMM (0.0-0.2); BASOPHILS % (AUTO) 0.6 % (0.0-2.0); EOSINOPHILS % (AUTO) 2.9 % (0.0-6.0); HEMATOCRIT 24 % (33-45); LYMPHOCYTES # (AUTO) 1.2 /CMM (0.8-4.8); LYMPHOCYTES % (AUTO) 14.8 % (20.0-44.0); MEAN CORPUSCULAR HGB CONC 33 g/dl (31.0-36.0); MEAN CORPUSCULAR VOLUME 87 fL (82-100); MONOCYTES # (AUTO) 0.7 /CMM (0.1-1.30); NEUTROPHILS % (AUTO) 72.7 % (43.0-81.0); PLATELET COUNT (AUTO) 228 /CMM (150-450); RED BLOOD CELL COUNT(AUTO) 2.78 MIL/uL (4.0-5.2); WHITE BLOOD COUNT (AUTO) 8.3 K/uL (4.3-11.0)
--- NOTE | 2020-02-28 07:20 | NUR ---
ms rn received on bed, awake,alert,oriented x1-2,not in any form of distress, respirations even and unlabored,no sob noted, lungs are diminish, abdomen soft,positive bowel sounds,denies pain at this time,all needs attended.
[2020-02-28 07:28] LABS: ALBUMIN 2.5 g/dL (3.4-5.0); BILIRUBIN,TOTAL 1.1 mg/dL (0.2-1.0); CALCIUM, SERUM 7.8 mg/dL (8.5-10.1); CREATININE 1.2 mg/dL (0.6-1.3); MAGNESIUM 2.3 mg/dL (1.8-2.4); PHOSPHORUS 2.2 mg/dL (2.5-4.9); POTASSIUM 3.5 mmol/L (3.5-5.1); TOTAL PROTEIN, SERUM 5.3 g/dL (6.4-8.2)
[2020-02-28 08:00] VITALS: BP 108/48
[2020-02-28] MEDS: ATENOLOL 25 MG TABLET PO SCH (09:00)
[2020-02-28] MEDS: PANTOPRAZOLE 40 MG VIAL IV SCH ×2 (09:28→20:35)
[2020-02-28] MEDS: MEGESTROL ACETATE 40 MG TABLET PO SCH ×2 (09:28→18:03)
[2020-02-28] MEDS: DOCUSATE SODIUM 250 MG CAPSULE PO SCH ×2 (09:29→18:03)
[2020-02-28] MEDS: QUETIAPINE FUMARATE 25 MG TABLET PO SCH ×2 (09:29→18:03)
[2020-02-28] MEDS: MEMANTINE HCL 5 MG TABLET PO SCH (09:29)
[2020-02-28] MEDS: LEVOTHYROXINE SODIUM 50 MCG TABLET PO SCH (09:29)
[2020-02-28] MEDS: SERTRALINE HCL 50 MG TABLET PO SCH (09:29)
[2020-02-28] MEDS: DONEPEZIL 5 MG TABLET PO SCH (09:32)
--- NOTE | 2020-02-28 09:40 | NUR ---
ms almaguer breakfast served,due meds given,tolerated well.
--- NOTE | 2020-02-28 12:05 | NUR ---
ms almaguer bs-106 - no coverage given.
[2020-02-28 16:16] VITALS: BP 114/75
[2020-02-28] MEDS ORDERED: NEUTRA PHOS 1 POWD.PACKET PO ONE (16:30)
--- NOTE | 2020-02-28 17:30 | NUR ---
ms rn bs- 158 - did not give coverage, patient has hx of hypoglycemia and don't eat that much.
--- NOTE | 2020-02-28 19:06 | NUR ---
ms rn on bed, no distress noted.
--- NOTE | 2020-02-28 19:45 | NUR ---
MS RN NOTES PATIENT IN BED, ASLEEP, ALERT AND ORIENTED X 1-2. BREATHING EVEN AND UNLABORED ON 2L NC. SHOWS NO SIGNS OF ACUTE RESPIRATORY DISTRESS, NO ACUTE PAIN. IV ON COLETTE MIDLINE CLEAN DRY AND INTACT. SHOWS NO SIGNS OF INFILTRATION, NO REDNESS. DUNN INTACT, FLOWING CLEAR URINE. SAFETY PRECAUTIONS IN PLACE. BED IN LOWEST POSITION, LOCKED, AND CALL LIGHT KEPT WITHIN REACH. WILL CONTINUE TO MONITOR.
[2020-02-28 20:00] VITALS: BP 121/53
[2020-02-29] MEDS ORDERED: ANESTHESIA TRAY IN PYXIS 1 EA TRAY MC ONE (05:25)
--- NOTE | 2020-02-29 05:37 | NUR ---
MS RN NOTES PT LEFT FOR EDG. RECEIVED CONSENT FROM BRUNO FOR PERSON TO NOTIFY. WILL CONTINUE TO MONITOR.
[2020-02-29 06:45] VITALS: BP 104/66
--- NOTE | 2020-02-29 06:45 | NUR ---
MS RN NOTES ARRIVED BACK FROM EGD WITH 0645. RESUME DIET AND TO BE FULL CODE FROM 0600 UNTIL 03/01 0600 PER TELEPHONE CONSENT. WILL ENDORSE TO ONCOMING NURSE.
--- NOTE | 2020-02-29 06:57 | NUR ---
MS RN NOTES PATIENT IN BED, ASLEEP, ALERT AND ORIENTED X 1-2. BREATHING EVEN AND UNLABORED ON 2L NC. SHOWS NO SIGNS OF ACUTE RESPIRATORY DISTRESS, NO ACUTE PAIN. IV ON COLETTE MIDLINE CLEAN DRY AND INTACT. SHOWS NO SIGNS OF INFILTRATION, NO REDNESS. DUNN INTACT, FLOWING CLEAR URINE. ALL DUE MEDICATIONS GIVEN. SAFETY PRECAUTIONS IN PLACE. BED IN LOWEST POSITION, LOCKED, AND CALL LIGHT KEPT WITHIN REACH. WILL ENDORSE TO ONCIMING NURSE.
[2020-02-29] MEDS: BLOOD SUGAR DIAGNOSTIC 1 EACH STRIP IN SCH ×4 (07:00→17:05)
--- NOTE | 2020-02-29 07:53 | NUR ---
rn notes patient received on 2L nasal cannula, no sob noted, feliz cath present. s/p EGD with findings of gastritis and hiatal hernia. Patient a/o x 1 and does not respond to any questions. bed at the lowest setting, call light within reach, side rails up x2.
[2020-02-29 08:00] VITALS: BP 125/68
[2020-02-29 08:04] LABS: CREATININE 1.3 mg/dL (0.6-1.3); PHOSPHORUS 3.4 mg/dL (2.5-4.9)
[2020-02-29] MEDS: PANTOPRAZOLE 40 MG VIAL IV SCH (08:50)
[2020-02-29] MEDS: MEMANTINE HCL 5 MG TABLET PO SCH (08:50)
[2020-02-29] MEDS: LEVOTHYROXINE SODIUM 50 MCG TABLET PO SCH (08:51)
[2020-02-29] MEDS: SERTRALINE HCL 50 MG TABLET PO SCH (08:51)
[2020-02-29] MEDS: DONEPEZIL 5 MG TABLET PO SCH (08:51)
[2020-02-29 08:56] VITALS: BP 125/65
[2020-02-29] MEDS: MEGESTROL ACETATE 40 MG TABLET PO SCH ×2 (08:56→16:50)
[2020-02-29] MEDS: DOCUSATE SODIUM 250 MG CAPSULE PO SCH ×2 (08:56→16:51)
[2020-02-29] MEDS: ATENOLOL 25 MG TABLET PO SCH (08:56)
[2020-02-29] MEDS: QUETIAPINE FUMARATE 25 MG TABLET PO SCH ×2 (08:56→16:50)
[2020-02-29 09:43] LABS: BASOPHILS % (AUTO) 0.5 % (0.0-2.0); EOSINOPHILS % (AUTO) 1.9 % (0.0-6.0); HEMATOCRIT 30 % (33-45); HEMOGLOBIN 9.2 g/dL (11.5-14.8); LYMPHOCYTES # (AUTO) 0.9 /CMM (0.8-4.8); LYMPHOCYTES % (AUTO) 11.9 % (20.0-44.0); MEAN CORPUSCULAR HGB CONC 31 g/dl (31.0-36.0); MEAN CORPUSCULAR VOLUME 93 fL (82-100); MONOCYTES # (AUTO) 0.6 /CMM (0.1-1.30); MONOCYTES % (AUTO) 7.7 % (2.0-12.0); NEUTROPHILS # (AUTO) 5.6 /CMM (1.8-8.9); PLATELET COUNT (AUTO) 211 /CMM (150-450); RED BLOOD CELL COUNT(AUTO) 3.21 MIL/uL (4.0-5.2); WHITE BLOOD COUNT (AUTO) 7.2 K/uL (4.3-11.0)
[2020-02-29] MEDS: INSULIN REGULAR, HUMAN 100 UNIT/ML 3 ML VIAL SQ PRN ×2 (12:31→17:04)
[2020-02-29 16:35] LABS: OCCULT BLOOD STOOL NEGATIVE (NEGATIVE)
--- NOTE | 2020-02-29 17:38 | NUR ---
rn dc notes patient dc at this time to ambulance. all paperworks given to EMT, IV lines removed, feliz cath removed, all belongings with patient and nothing is missing. pt refused photos to be taken 3x.
--- NOTE | 2020-02-29 18:36 | NUR ---
rn notes pt refused photos, called caregiver and told her that the belonging was left in the hospital by the paramedics. Folder with patients information and prescription was also not left by the EMT for the patient. mail manager aware, charge nurse aware. Belonging at the front end technician, charge nurse desk.
== END 2020-02-29 17:40 | disposition home health service (06) | DRG 637 ==
LOC: ER 10:40 → TELE 13:57 → MED 02-27 08:50
PROVIDERS: ADMIT Nurse Practitioner Acute Care; ATTEND Internal Medicine
PROC: 30233N1 Transfusion of Nonautologous Red Blood Cells into Peripheral Vein, Percutaneous Approach (ICD-10-PCS; principal; 2020-02-26)
PROC: 30233K1 Transfusion of Nonautologous Frozen Plasma into Peripheral Vein, Percutaneous Approach (ICD-10-PCS; 2020-02-27)
PROC: 05H533Z Insertion of Infusion Device into Right Subclavian Vein, Percutaneous Approach (ICD-10-PCS; 2020-02-27)
PROC: B546ZZA Ultrasonography of Right Subclavian Vein, Guidance (ICD-10-PCS; 2020-02-27)
PROC: 0DB98ZX Excision of Duodenum, Via Natural or Artificial Opening Endoscopic, Diagnostic (ICD-10-PCS; 2020-02-29)
DX: E11.65 Type 2 diabetes mellitus with hyperglycemia (principal); N17.0 Acute kidney failure with tubular necrosis; D62 Acute posthemorrhagic anemia; E87.1 Hypo-osmolality and hyponatremia; E87.2 Acidosis; F03.90 Unspecified dementia, unspecified severity, without behavioral disturbance, psychotic disturbance, mood disturbance, and anxiety; I25.10 Atherosclerotic heart disease of native coronary artery without angina pectoris; E03.9 Hypothyroidism, unspecified; D64.9 Anemia, unspecified; F32.9 Major depressive disorder, single episode, unspecified; M81.0 Age-related osteoporosis without current pathological fracture; Z66 Do not resuscitate; Z79.82 Long term (current) use of aspirin; Z79.84 Long term (current) use of oral hypoglycemic drugs; Z90.10 Acquired absence of unspecified breast and nipple; I10 Essential (primary) hypertension; I35.0 Nonrheumatic aortic (valve) stenosis; K29.70 Gastritis, unspecified, without bleeding; I25.2 Old myocardial infarction; K44.9 Diaphragmatic hernia without obstruction or gangrene
CPT/HCPCS: 36410; 36415; 71045-TC; 80048-TC; 80053-TC; 80061-TC; 80076-TC; 81000-TC; 82272-TC; 82570-TC; 82728-TC; 82962-TC; 83540-TC; 83605-TC; 83735-TC; 84100-TC; 84155-TC; 84300-TC; 84439-TC; 84443-TC; 84484-TC; 85025-TC; 85045-TC; 85730-TC; 86850-TC; 86921-TC; 87040-TC; 87081-TC; 87086-TC; 88305-TC; 93307-TC; C9113; G0378; J0696; J1815; J2704; J3490; J7030; J7050; P9016-BL; P9017-BL

== ENCOUNTER 2020-05-12 04:36 | Inpatient (IN) | payer MEDICARE, BC ==
[~2020-05-12] VITALS: Ht 152.4 cm; Wt 47.2 kg
[~2020-05-12 04:36] MED LIST changes: +DONE5TAB34 PO
[2020-05-12] MEDS ORDERED: INFANT DEXTROSE 25%-WATER 10 ML DISP.SYRIN ONE (04:47)
--- NOTE | 2020-05-12 04:53 | NUR ---
PT AAOX1 (NORMAL) BIBRA FROM HOME DUE TO PT BG BEING 24. PT WAS FOUND TO BE ALTERED. PER RA PT WAS GIVEN D10 HEAD PUMPER WHICH INCREASED BG TO 224. UPON ARRIVAL PT AAOX1. PLACED IN BED 1 ON FIRST AID TRAINER AND PULSE OX. WHEN ASSSESSED, PT BG WAS 68, OREDRED DEXTROSE 25%. LINE ESTABLISHED LF 20G HEAD PUMPER. BLOOD DRAWN AND SENT TO LAB. SPEAKING TO PT REGARDING PLAN OF CARE.
--- NOTE | 2020-05-12 04:57 | NUR ---
PT GIVEN A SANDWHICH, WILL RECHECK BG IN 20 MINS.
[2020-05-12 04:58] LABS: BASOPHILS # (AUTO) 0.1 /CMM (0.0-0.2); BASOPHILS % (AUTO) 0.8 % (0.0-2.0); EOSINOPHILS % (AUTO) 1.4 % (0.0-6.0); HEMATOCRIT 32 % (33-45); HEMOGLOBIN 10.1 g/dL (11.5-14.8); LYMPHOCYTES # (AUTO) 1.1 /CMM (0.8-4.8); LYMPHOCYTES % (AUTO) 17.6 % (20.0-44.0); MEAN CORPUSCULAR HGB CONC 32 g/dl (31.0-36.0); MEAN CORPUSCULAR VOLUME 89 fL (82-100); MONOCYTES # (AUTO) 0.4 /CMM (0.1-1.30); MONOCYTES % (AUTO) 7.2 % (2.0-12.0); NEUTROPHILS # (AUTO) 4.5 /CMM (1.8-8.9); PLATELET COUNT (AUTO) 271 /CMM (150-450); RED BLOOD CELL COUNT(AUTO) 3.53 MIL/uL (4.0-5.2); WHITE BLOOD COUNT (AUTO) 6.1 K/uL (4.3-11.0)
--- NOTE | 2020-05-12 05:00 | NUR ---
XRAY AT BEDSIDE
[2020-05-12 05:09] LABS: CARBON DIOXIDE 24 mmol/L (21-32); CHLORIDE 104 mmol/L (98-107); GLUCOSE 72 mg/dL (74-106); SODIUM SERUM 137 mmol/L (136-145); UREA NITROGEN, BLOOD 26 mg/dL (7-18)
--- NOTE | 2020-05-12 05:09 | NUR ---
ASKED PT TO PROVIDE URINE SAMPLE, PT UNABLE TO. MD AWARE.
[2020-05-12 05:14] LABS: ALANINE AMINOTRANSFERASE 10 U/L (12-78); ALBUMIN 3.2 g/dL (3.4-5.0); ALKALINE PHOSPHATASE 50 U/L (46-116); ASPARTATE AMINOTRANSFERASE 15 U/L (15-37); BILIRUBIN,TOTAL 0.3 mg/dL (0.2-1.0); LIPASE 86 U/L (73-393); TOTAL PROTEIN, SERUM 6.9 g/dL (6.4-8.2)
--- NOTE | 2020-05-12 05:34 | NUR ---
called [facility] for panel admission. waiting for dr. frankel call back
--- NOTE | 2020-05-12 05:38 | NUR ---
PATIENT SWAB COLLECTED AND SENT TO THE LAB WITH LEARNING DISABILITIES TEACHER.
--- NOTE | 2020-05-12 05:41 | NUR ---
dr. frankel speaking to dr. goins regarding admission
--- NOTE | 2020-05-12 05:41 | NUR ---
move packet given to admission.
--- NOTE | 2020-05-12 05:42 | NUR ---
MD FERNANDO ON THE PHONE WITH MD RAAJN
[2020-05-12] MEDS ORDERED: ACETAMINOPHEN 325 MG TABLET PO PRN (06:00)
[2020-05-12] MEDS ORDERED: ONDANSETRON HCL/PF 4 MG/2 ML VIAL IVP PRN (06:00)
--- NOTE | 2020-05-12 06:11 | NUR ---
negative covid per lab
--- NOTE | 2020-05-12 06:14 | NUR ---
called rn sup for tele bed
--- NOTE | 2020-05-12 06:24 | NUR ---
REPORT GIVEN TO KARLENE JIMENEZ FOR MAGDALENO.
--- NOTE | 2020-05-12 07:02 | NUR ---
PATIENT BROUGHT UP TO ASSIGNED ROOM FOR MAGDALENO. ([id number])
--- NOTE | 2020-05-12 07:30 | NUR ---
STEEL MOLDER NOTES PT IN BED, AWAKE, ALERT AND VERBALLY RESPONSIVE, NO COMPLAINT OF PAIN, NOT IN DISTRESS, BS CHECKED, NO S/S OF HYPO/HYPERGLYCEMIA NOTED, CALL LIGHT WITHIN REACH, KEPT WARM AND COMFORTABLE IN BED.
[2020-05-12 08:00] VITALS: BP 132/59
--- NOTE | 2020-05-12 09:12 | NUR ---
LOCAL OWNER OPERATOR TRUCK DRIVER NOTES PT SEEN AND EXAMINED BY DR. LOUIE, ORDERS GIVEN.
[2020-05-12] MEDS ORDERED: POTASSIUM CHLORIDE 20 MEQ TAB.PRT.SR PO ONE (09:30)
[2020-05-12] MEDS ORDERED: DEXTROSE 50%-WATER 50 ML DISP.SYRIN IV PRN (09:30)
[2020-05-12] MEDS: DONEPEZIL 5 MG TABLET PO SCH (10:13)
[2020-05-12] MEDS: ASPIRIN EC 81 MG TABLET.DR PO SCH (10:13)
[2020-05-12] MEDS: MEGESTROL ACETATE 40 MG TABLET PO SCH ×2 (10:13→17:02)
[2020-05-12] MEDS: DOCUSATE SODIUM 250 MG CAPSULE PO SCH ×2 (10:13→17:02)
[2020-05-12] MEDS: PANTOPRAZOLE 40 MG TABLET.DR PO SCH (10:13)
[2020-05-12] MEDS: LEVOTHYROXINE SODIUM 50 MCG TABLET PO SCH (10:13)
[2020-05-12] MEDS: SERTRALINE HCL 50 MG TABLET PO SCH (10:14)
[2020-05-12] MEDS: MEMANTINE HCL 5 MG TABLET PO SCH (10:14)
[2020-05-12] MEDS: Potassium Chloride 20 MEQ in IV D5/0.45 NACL 1,000 ML IV PRN (12:58)
[2020-05-12] MEDS: BLOOD SUGAR DIAGNOSTIC 1 EACH STRIP IN SCH ×3 (12:58→20:49)
--- NOTE | 2020-05-12 14:20 | NUR ---
MS RN NOTES SPOKE WITH MICAH GOEL, ANNE GOEL PT IS DNR STATUS AND ADVANCE DIRECTIVE FAXED FOR PATIENTS RECORDS. SPOKE WITH DR. RAMIREZ AND CODE STATUS ORDER PLACED.
[2020-05-12 16:00] VITALS: BP 125/61
[2020-05-12] MEDS: INSULIN REGULAR, HUMAN 100 UNIT/ML 3 ML VIAL SQ PRN (17:38)
[2020-05-12 18:41] LABS: APPEARANCE,URINE CLEAR (CLEAR); BILIRUBIN,URINE NEGATIVE (NEGATIVE); BLOOD, URINE LARGE Ery/uL (NEGATIVE); COLOR,URINE YELLOW (YELLOW); KETONES,URINE NEGATIVE (NEGATIVE); LEUKOCYTE ESTERASE ,URINE NEGATIVE (NEGATIVE); NITRITE, URINE NEGATIVE (NEGATIVE); PROTEIN,URINE NEGATIVE (NEGATIVE); UGLUCOSE NEGATIVE (NEGATIVE); UROBILINOGEN,URINE 0.2 EU/dL (0.2)
--- NOTE | 2020-05-12 19:15 | NUR ---
MS RN CLOSING NOTES PATIENT RESTING COMFORTABLY IN BED, AWAKE AND ALERT AND VERBALLY RESPONSIVE, NO COMPLAINT OF PAIN, NOT IN ANY RESPIRATORY DISTRESS, NO SOB. IV TO LT FOOT #20 PATENT AND INTACT. BED AT LOWEST POSITION AND LOCKED WITH CALL LIGHT WITHIN REACH WILL ENDORSE TO ONCOMING SHIFT
--- NOTE | 2020-05-12 19:15 | NUR ---
imaging science professor opening notes Pt is resting in bed comfortably. Pt is alert and orientedX2 with episode of confusion. Respiration is normal in room air. No SOB. No S/S of distress noted. Tele monitor showed [facility] H[facility] at 57 bpm. IV sites at L foot # 20 is clean, intact and infusing well D5 1/2 NS wth potassium 20 meq @ 60 ml/hr. Safety precautions is maintained. Bed at low position, brakes locked, side rails upX2, HOB elevated, and call light is within reach. Will continue to monitor.
[2020-05-12 20:00] VITALS: BP 122/51
[2020-05-13] VITALS: BP 132/51
--- NOTE | 2020-05-13 00:46 | NUR ---
inspector machined parts notes Pt's blood sugar is 51. Pt is alert and orientedX2 and responsive. Pt is also on fluid potassium chloride 20 meq D5/0.45 NS at 60 ml/hr. Snack is given to Pt (vanilla puding, vanilla ice cream). no S/S of hypoglycemia. No S/s of distress noted. Will check again in 15 minutes.
--- NOTE | 2020-05-13 01:08 | NUR ---
manager aviation notes Pt's blood sugar is 61. Pt is alert and responsive. No S/S of hypoglycemia noted. No S/S of distress noted. Snack is provided. IV fluid is infusing well. Pt stated " no more poking." Explained risks and benefits. Pt verbalize understanding. Charge nurse is aware and informed.
[2020-05-13] MEDS: BLOOD SUGAR DIAGNOSTIC 1 EACH STRIP IN SCH ×6 (01:28→21:51)
[2020-05-13 04:00] VITALS: BP 124/59
--- NOTE | 2020-05-13 04:45 | NUR ---
manager hydraulic notes Pt's blood sugar was 272. No insulin coverage is given because Pt's BS has tendency to fluctuate. Pt is alert and orientedX2 and responsive. Charge nurse is aware and informed.
[2020-05-13] MEDS: Potassium Chloride 20 MEQ in IV D5/0.45 NACL 1,000 ML IV PRN (05:00)
--- NOTE | 2020-05-13 06:45 | NUR ---
sales intern notes Pt is resting in bed comfortably. Pt is alert and orientedX1-2 with episode of confusion. Respiration is normal in room air. No SOB. No S/S of distress noted. VS is stable. Afebrile. Routine meds were given as ordered. Tele monitor showed S[facility] carlos enrique Hr at 58 bpm. IV sites at L foot # 20 is clean, intact and infusing well D5 1/2 NS with potassium 20 meq @ 60 ml/hr. All needs met and attended. Safety precautions is maintained. All needs met and attended. Bed at low position, brakes locked, side rails upX2, HOB elevated, and call light is within reach. Will endorse to morning nurse for MAGDALENO, Addendum: 05/13/20 at 0729 by MIAN MCDANIEL RN sales intern closing notes
--- NOTE | 2020-05-13 07:30 | NUR ---
RN NOTE: PT RECEIVED IN BED, EYES OPEN, A/OX2. PT ON RA O2 SATURATION 99%. NO RESPIRATORY DISTRESS OR SOB. PT ON MONITOR SHOWING SB 57. PT HAS RIGHT ARM SKIN DISCOLORATION, SKIN INTACT OTHERWISE. PT HAS LEFT FOOT #20 RUNNING KCL 20 MEQ, NO SIGNS OF INFECTION OR INFILTRATION. PT IN BED LOCKED LOWEST POSITION. CALL LIGHT WITHIN REACH. WILL CONTINUE TO MONITOR AT THIS TIME
[2020-05-13 08:39] LABS: BASOPHILS # (AUTO) 0.1 /CMM (0.0-0.2); EOSINOPHILS % (AUTO) 5.7 % (0.0-6.0); HEMATOCRIT 35 % (33-45); HEMOGLOBIN 10.9 g/dL (11.5-14.8); LYMPHOCYTES # (AUTO) 1.8 /CMM (0.8-4.8); LYMPHOCYTES % (AUTO) 29.2 % (20.0-44.0); MEAN CORPUSCULAR HGB CONC 31 g/dl (31.0-36.0); MEAN CORPUSCULAR VOLUME 91 fL (82-100); MONOCYTES # (AUTO) 0.5 /CMM (0.1-1.30); MONOCYTES % (AUTO) 8.1 % (2.0-12.0); NEUTROPHILS # (AUTO) 3.4 /CMM (1.8-8.9); PLATELET COUNT (AUTO) 279 /CMM (150-450); RED BLOOD CELL COUNT(AUTO) 3.87 MIL/uL (4.0-5.2); WHITE BLOOD COUNT (AUTO) 6.2 K/uL (4.3-11.0)
[2020-05-13 08:45] VITALS: BP 139/89
[2020-05-13 08:53] LABS: MAGNESIUM 2.4 mg/dL (1.8-2.4); PHOSPHORUS 2.6 mg/dL (2.5-4.9); POTASSIUM 3.9 mmol/L (3.5-5.1)
[2020-05-13] MEDS: MEMANTINE HCL 5 MG TABLET PO SCH (10:10)
[2020-05-13] MEDS: DONEPEZIL 5 MG TABLET PO SCH (10:10)
[2020-05-13] MEDS: PANTOPRAZOLE 40 MG TABLET.DR PO SCH (10:11)
[2020-05-13] MEDS: DOCUSATE SODIUM 250 MG CAPSULE PO SCH ×2 (10:11→19:16)
[2020-05-13] MEDS: SERTRALINE HCL 50 MG TABLET PO SCH (10:11)
[2020-05-13] MEDS: MEGESTROL ACETATE 40 MG TABLET PO SCH ×2 (10:11→19:16)
[2020-05-13] MEDS: ASPIRIN EC 81 MG TABLET.DR PO SCH (10:11)
[2020-05-13] MEDS: LEVOTHYROXINE SODIUM 50 MCG TABLET PO SCH (10:11)
[2020-05-13] MEDS: INSULIN REGULAR, HUMAN 100 UNIT/ML 3 ML VIAL SQ PRN ×3 (10:28→21:55)
[2020-05-13 12:00] VITALS: BP 121/54
[2020-05-13] MEDS ORDERED: IV NS 0.9% 1,000 ML IV ONE (13:30)
[2020-05-13] MEDS ORDERED: DEXTROSE 50%-WATER 50 ML DISP.SYRIN IV PRN (13:30)
[2020-05-13 16:24] VITALS: BP 121/59
--- NOTE | 2020-05-13 19:34 | NUR ---
RN NOTES REPORT GIVEN TO BARBARA MCCOLLUM FOR MAGDALENO
--- NOTE | 2020-05-13 19:44 | NUR ---
RN NOTE: PT IN BED, EYES OPEN ALERTXORIENTED X 2. PT ON RA 96%. NO RESPIRATORY DISTRESS OR SOB. PT ON MONITOR SHOWING SB 50-60S. PT HAS LEFT FOOT #20 RUNNING NS @60 ML/HR. NO SIGNS OF INFECTION OR INFILTRATION. REPORT GIVEN TO ONCOMING RN FOR MAGDALENO. BED IN LOCKED LOWEST POSITION. CALL LIGHT WITHIN REACH. ALL SAFETY MEASURES IN PLACE.
--- NOTE | 2020-05-13 21:10 | NUR ---
RN NOTE: RECEIVED BEDSIDE REPORT FROM BARBARA BEAN IN 3W PT IN BED,AWAKE A/O TO SELF, ON RA WITH OPTIMAL O2 SAT LEVEL, BREATHING EVEN AND UNLABORED, NO S/S OF ANY RESPIRATORY DISTRESS/SOB, SB ON MONITOR HIGH 50S -60S, PIV LINE LEFT FOOT #20, AND IVF NS @60 ML/HR, INFUSING WELL AND PATIENT TOLERATED WELL, NO SIGNS INFILTRATION, BED IN LOCKED LOWEST POSITION, CALL LIGHT WITHIN REACH, ALL SAFETY MEASURES IN PLACE, WILL CONTINUE TO MONITOR CLOSELY.
[2020-05-14] VITALS: BP 158/66
[2020-05-14 05:02] VITALS: BP 105/48
[2020-05-14 06:30] LABS: BASOPHILS # (AUTO) 0.1 /CMM (0.0-0.2); BASOPHILS % (AUTO) 0.7 % (0.0-2.0); EOSINOPHILS % (AUTO) 3.2 % (0.0-6.0); HEMATOCRIT 31 % (33-45); HEMOGLOBIN 10.1 g/dL (11.5-14.8); LYMPHOCYTES # (AUTO) 1.6 /CMM (0.8-4.8); LYMPHOCYTES % (AUTO) 19.1 % (20.0-44.0); MEAN CORPUSCULAR HGB CONC 32 g/dl (31.0-36.0); MEAN CORPUSCULAR VOLUME 88 fL (82-100); MONOCYTES # (AUTO) 0.6 /CMM (0.1-1.30); MONOCYTES % (AUTO) 6.8 % (2.0-12.0); NEUTROPHILS # (AUTO) 5.7 /CMM (1.8-8.9); NEUTROPHILS % (AUTO) 70.2 % (43.0-81.0); PLATELET COUNT (AUTO) 285 /CMM (150-450); RED BLOOD CELL COUNT(AUTO) 3.57 MIL/uL (4.0-5.2); WHITE BLOOD COUNT (AUTO) 8.1 K/uL (4.3-11.0)
[2020-05-14 06:57] LABS: CALCIUM, SERUM 8.3 mg/dL (8.5-10.1); CREATININE 0.9 mg/dL (0.6-1.3); POTASSIUM 3.5 mmol/L (3.5-5.1)
--- NOTE | 2020-05-14 07:17 | NUR ---
RN CLOSING NOTE, PT IN BED, AWAKE A/O TO SELF, ON RA WITH OPTIMAL O2 SAT LEVEL, BREATHING EVEN AND UNLABORED, NO S/S OF ANY RESPIRATORY DISTRESS/SOB, SB ON MONITOR HIGH 50S -60S, PIV LINE LEFT FOOT #20, S/L NO SIGNIFICANT CHANGE IN CONDITION THROUGHOUT THE NIGHT, BED IN LOCKED LOWEST POSITION, CALL LIGHT WITHIN REACH, ALL SAFETY MEASURES IN PLACE, ENDORSED PATIENT TO BARBRAA BEAN FOR CONTINUATION OF CARE.
--- NOTE | 2020-05-14 07:47 | NUR ---
REORDERING CLERK NOTE: PT RECEIVED EYES CLOSED, AROUSABLE TO VERBAL STIMULI, A/OX1. PT ON RA O2 SATURATION 98%. NO RESPIRATORY DISTRESS OR SOB. PT BREATHING EVEN AND UNLABORED. PT IS ON EXTERNAL MONITOR SHOWING SR 58-60S. PT IS BEDREST AND INCONTINENT. RIGHT ARM HAS SKIN DISCOLORATION. PT FEEDS WITH ASSISTANCE CARDIAC LOW FAT DIET. PT HAS LEFT FOOT 20G CURRENTLY SL. NO SIGNS OF INFECTION OR INFILTRATION. BED IN LOCKED LOWEST POSITION. ALL NEEDS ATTENDED. CALL LIGHT WITHIN REACH. WILL CONTINUE TO MONITOR CLOSELY.
[2020-05-14] MEDS: MEMANTINE HCL 5 MG TABLET PO SCH (08:03)
[2020-05-14] MEDS: MEGESTROL ACETATE 40 MG TABLET PO SCH ×2 (08:03→17:59)
[2020-05-14] MEDS: ASPIRIN EC 81 MG TABLET.DR PO SCH (08:03)
[2020-05-14] MEDS: SERTRALINE HCL 50 MG TABLET PO SCH (08:04)
[2020-05-14] MEDS: LEVOTHYROXINE SODIUM 50 MCG TABLET PO SCH (08:04)
[2020-05-14] MEDS: PANTOPRAZOLE 40 MG TABLET.DR PO SCH (08:04)
[2020-05-14] MEDS: BLOOD SUGAR DIAGNOSTIC 1 EACH STRIP IN SCH ×4 (08:04→18:01)
[2020-05-14] MEDS: DONEPEZIL 5 MG TABLET PO SCH (08:04)
[2020-05-14] MEDS: DOCUSATE SODIUM 250 MG CAPSULE PO SCH ×2 (08:04→17:59)
--- NOTE | 2020-05-14 09:30 | NUR ---
BARBARA MS NOTE: PT TO BE TRANSFERRED FROM TELE TO MS PER MD ORDER
[2020-05-14] MEDS: INSULIN REGULAR, HUMAN 100 UNIT/ML 3 ML VIAL SQ PRN ×2 (12:06→18:03)
[2020-05-14] MEDS ORDERED: PNEUMOCOCCAL 23-VAL P-SAC VAC 0.5 ML VIAL SQ ONE (18:00)
[2020-05-14] MEDS ORDERED: INFLUENZA VACCINE 2020-21 0.5 ML DISP.SYRIN IM ONE (18:00)
--- NOTE | 2020-05-14 18:00 | NUR ---
RN MS NOTE PT DPOA REQUESTS FLU VACCINATION AND PNA VACCINATION. ORDERS RECEIVED AND VERIFIED BY PHARMACY. BOTH FLU AND PNA GIVEN IM PRIOR TO PT D/C LATER TODAY
[2020-05-14 18:23] VITALS: BP 135/55
--- NOTE | 2020-05-14 19:00 | NUR ---
RN OPENING NOTE RECEIVED PATIENT IN BED RESTING ALERT ORIENTED X1 CONFUSED ON MED SURG MONITORING NO SOB NOT ACUTE DISTRESS NOTED,PATIENT ON ROOM AIR 98% INCONTINENT TO BOWEL AND BLADDER,FALL RISK,IMPLEMENT SAFETY MEASURE,BED IN LOW POSITION AND LOCKED,BED ALARM IS ON CONTINUE TO MONITOR
--- NOTE | 2020-05-14 19:46 | NUR ---
RN MS NOTE: PT CONDITION UNCHANGED THIS SHIFT. PT ON RA O2 SATURATION 99%. NO RESPIRATORY DISTRESS. BED IN LOCKED LOWEST POSITION. CALL LIGHT WITHIN REACH. ALL SAFETY MEASURES IN PLACE. PT DPOA AWARE OF IMPENDING DISCHARGE. AWAITING EMT FOR D/C. REPORT GIVEN TO ONCOMING NURSE FOR MAGDALENO.
[2020-05-14 20:00] VITALS: BP 108/60
--- NOTE | 2020-05-14 20:32 | NUR ---
RN CLOSING NOTE PATIENT DISCHARGED HOME IN STABLE CONDITION NO SOB NOT ACUTE DISTRESS NOTED,AT THIS TIME, AND REMAINS ALERT ORIENTED X1 CONFUSED ON ROOM 98% BREATHING IS EVEN AND NONLABORED,KEPT CLEAN AND DRY ALL THE TIME,NO PAIN NO DISCOMFORT NOTED,PATIENT DISCHARGED HOME ACCOMPANIED BY [facility].
== END 2020-05-14 20:32 | disposition home or self-care (01) | DRG 637 ==
LOC: ER 04:38 → TELE 06:23 → TELE1 05-13 20:01 → MEDSG1 05-14 09:25
PROVIDERS: ADMIT Nurse Practitioner Acute Care
DX: E11.649 Type 2 diabetes mellitus with hypoglycemia without coma (principal); G93.41 Metabolic encephalopathy; E44.1 Mild protein-calorie malnutrition; D68.69 Other thrombophilia; F03.90 Unspecified dementia, unspecified severity, without behavioral disturbance, psychotic disturbance, mood disturbance, and anxiety; D63.8 Anemia in other chronic diseases classified elsewhere; E03.9 Hypothyroidism, unspecified; E86.0 Dehydration; E87.6 Hypokalemia; I10 Essential (primary) hypertension; I25.10 Atherosclerotic heart disease of native coronary artery without angina pectoris; M81.0 Age-related osteoporosis without current pathological fracture; Z79.82 Long term (current) use of aspirin; Z79.84 Long term (current) use of oral hypoglycemic drugs; E88.09 Other disorders of plasma-protein metabolism, not elsewhere classified; Z73.6 Limitation of activities due to disability; Z68.20 Body mass index [BMI] 20.0-20.9, adult
CPT/HCPCS: 36415; 71045-TC; 80048-TC; 80053-TC; 80061-TC; 81000-TC; 82962-TC; 83690-TC; 83735-TC; 84100-TC; 84484-TC; 85025-TC; 87081-TC; 90732; C9803; G0378; J1815; J3480; J3490; J7030; Q2036

== ENCOUNTER 2020-05-17 13:42 | Outpatient (CLI) | payer MEDICARE, BC ==
[2020-05-17 15:49] LABS: BASOPHILS # (AUTO) 0.1 /CMM (0.0-0.2); BASOPHILS % (AUTO) 1.3 % (0.0-2.0); EOSINOPHILS % (AUTO) 4.5 % (0.0-6.0); HEMATOCRIT 33 % (33-45); HEMOGLOBIN 10.6 g/dL (11.5-14.8); LYMPHOCYTES # (AUTO) 1.8 /CMM (0.8-4.8); LYMPHOCYTES % (AUTO) 31.1 % (20.0-44.0); MEAN CORPUSCULAR HGB CONC 32 g/dl (31.0-36.0); MEAN CORPUSCULAR VOLUME 87 fL (82-100); MONOCYTES # (AUTO) 0.4 /CMM (0.1-1.30); MONOCYTES % (AUTO) 7.6 % (2.0-12.0); NEUTROPHILS # (AUTO) 3.2 /CMM (1.8-8.9); NEUTROPHILS % (AUTO) 55.5 % (43.0-81.0); PLATELET COUNT (AUTO) 318 /CMM (150-450); RED BLOOD CELL COUNT(AUTO) 3.77 MIL/uL (4.0-5.2); WHITE BLOOD COUNT (AUTO) 5.9 K/uL (4.3-11.0)
[2020-05-17 16:14] LABS: ALBUMIN 3.1 g/dL (3.4-5.0); BILIRUBIN,TOTAL 0.4 mg/dL (0.2-1.0); CALCIUM, SERUM 8.9 mg/dL (8.5-10.1); CREATININE 1.1 mg/dL (0.6-1.3); POTASSIUM 4.1 mmol/L (3.5-5.1); TOTAL PROTEIN, SERUM 6.9 g/dL (6.4-8.2)
[2020-05-17 16:22] LABS: FREE T4 (FREE THYROXINE) 1.05 ng/dL (0.76-1.46); THYROID STIMULATING HORMONE 3.653 uIU/mL (0.358-3.74)
[2020-05-17 16:23] LABS: C-REACTIVE PROTEIN 1.6 mg/dL (0.0-0.9)
[2020-05-26] MEDS ORDERED: SUCR1ORA6 PO (07:30)
[2020-05-26] MEDS ORDERED: PANT40TA2 PO (07:30)
[2020-05-26] MEDS ORDERED: NITR100C PO (07:46)
== END 2020-05-17 23:59 | disposition home or self-care (01) ==
LOC: MSC 13:42
PROVIDERS: ATTEND Internal Medicine
DX: E11.22 Type 2 diabetes mellitus with diabetic chronic kidney disease (principal); I12.9 Hypertensive chronic kidney disease with stage 1 through stage 4 chronic kidney disease, or unspecified chronic kidney disease; N18.9 Chronic kidney disease, unspecified; Z79.84 Long term (current) use of oral hypoglycemic drugs; R53.83 Other fatigue; D64.9 Anemia, unspecified; E03.9 Hypothyroidism, unspecified; R41.89 Other symptoms and signs involving cognitive functions and awareness; M81.0 Age-related osteoporosis without current pathological fracture; G47.00 Insomnia, unspecified; F41.1 Generalized anxiety disorder; Z79.899 Other long term (current) drug therapy
CPT/HCPCS: 36415; 80053; 82306; 82607; 82728; 83036; 83540; 84439; 84443; 85025; 86140; G0463

== ENCOUNTER 2020-05-21 17:29 | Inpatient (IN) | payer MEDICARE, BC ==
[~2020-05-21] VITALS: Ht 149.9 cm; Wt 54.4 kg
--- NOTE | 2020-05-21 17:38 | NUR ---
PT BARBI , PER REPORT FROM PARAMEDICS PT CAME FROM HOME AND VOMITED OUT BLOOD. PT DENIES ANY ABD PAIN AND N/V AT THIS TIME. HOWEVER PT IS CONFUSED AND IS APOOR HISTORIAN. VS CHECKED. AWAITING MD COYNE.
--- NOTE | 2020-05-21 17:40 | NUR ---
PT SEEN BY
--- NOTE | 2020-05-21 17:47 | NUR ---
MOVE SHEET SUBMITTED AND CALLED FOR A TELE BED.
[2020-05-21 17:54] LABS: BASOPHILS % (AUTO) 0.5 % (0.0-2.0); EOSINOPHILS % (AUTO) 0.3 % (0.0-6.0); HEMATOCRIT 33 % (33-45); HEMOGLOBIN 10.6 g/dL (11.5-14.8); LYMPHOCYTES # (AUTO) 0.8 /CMM (0.8-4.8); LYMPHOCYTES % (AUTO) 8.2 % (20.0-44.0); MEAN CORPUSCULAR HGB CONC 32 g/dl (31.0-36.0); MEAN CORPUSCULAR VOLUME 89 fL (82-100); MONOCYTES # (AUTO) 0.5 /CMM (0.1-1.30); MONOCYTES % (AUTO) 4.8 % (2.0-12.0); NEUTROPHILS # (AUTO) 8.2 /CMM (1.8-8.9); NEUTROPHILS % (AUTO) 86.2 % (43.0-81.0); PLATELET COUNT (AUTO) 316 /CMM (150-450); RED BLOOD CELL COUNT(AUTO) 3.75 MIL/uL (4.0-5.2); WHITE BLOOD COUNT (AUTO) 9.5 K/uL (4.3-11.0)
[2020-05-21] MEDS ORDERED: IV NS 0.9% 1,000 ML BAG IV ONE (18:00)
[2020-05-21] MEDS ORDERED: ONDANSETRON HCL/PF 4 MG/2 ML VIAL IVP ONE (18:00)
[2020-05-21] MEDS ORDERED: PANTOPRAZOLE 40 MG VIAL IV ONE (18:00)
[2020-05-21] MEDS ORDERED: PANTOPRAZOLE 40 MG VIAL ONE (18:01)
[2020-05-21] MEDS ORDERED: ONDANSETRON HCL/PF 4 MG/2 ML VIAL ONE (18:02)
[2020-05-21] MEDS ORDERED: MEGE40TA5 PO (18:04)
[2020-05-21] MEDS ORDERED: ASPI-1420 PO (18:04)
[2020-05-21] MEDS ORDERED: DOCU250C14 PO (18:04)
[2020-05-21] MEDS ORDERED: METF-441 PO (18:04)
[2020-05-21] MEDS ORDERED: ACET-868 PO (18:04)
[2020-05-21 18:19] LABS: CALCIUM, SERUM 9.4 mg/dL (8.5-10.1); CARBON DIOXIDE 23 mmol/L (21-32); CHLORIDE 101 mmol/L (98-107); CREATININE 1.2 mg/dL (0.6-1.3); GLUCOSE 198 mg/dL (74-106); POTASSIUM 4.5 mmol/L (3.5-5.1); SODIUM SERUM 135 mmol/L (136-145); UREA NITROGEN, BLOOD 35 mg/dL (7-18)
[2020-05-21 18:24] LABS: ALANINE AMINOTRANSFERASE 8 U/L (12-78); ALKALINE PHOSPHATASE 55 U/L (46-116); ASPARTATE AMINOTRANSFERASE 11 U/L (15-37); BILIRUBIN,DIRECT 0.1 mg/dL (0.0-0.2); BILIRUBIN,TOTAL 0.4 mg/dL (0.2-1.0); TOTAL PROTEIN, SERUM 7.2 g/dL (6.4-8.2)
--- NOTE | 2020-05-21 19:20 | NUR ---
[facility] CALLED REPACKER PAGED.
--- NOTE | 2020-05-21 20:08 | NUR ---
LAB CALLED REGARDING NEGATIVE COVID RESULT.
--- NOTE | 2020-05-21 20:37 | NUR ---
REPORT GIVEN TO KLEVER JIMENEZ FOR MAGDALENO
--- NOTE | 2020-05-21 20:58 | NUR ---
PT TRANSFERED PER ACLS PROTOCOL
[2020-05-21] MEDS ORDERED: ZOLPIDEM TARTRATE 5 MG TABLET PO PRN (21:00)
[2020-05-21] MEDS ORDERED: Z GUARD REMEDY 2 OZ OINT TP PRN (21:00)
[2020-05-21] MEDS ORDERED: IV D5/0.45 NACL 1,000 ML IV PRN (21:00)
[2020-05-21] MEDS ORDERED: ONDANSETRON HCL/PF 4 MG/2 ML VIAL IVP PRN (21:00)
[2020-05-21] MEDS ORDERED: DEXTROSE 50%-WATER 50 ML DISP.SYRIN IV PRN (21:00)
[2020-05-21 21:10] VITALS: BP 137/67
--- NOTE | 2020-05-21 21:10 | NUR ---
INSURANCE FOLLOW UP REPRESENTATIVESAND MILLER NOTES PATIENT ADMITTED FROM ER FOR R/O GIB; TRANSFERRED VIA GURNEY IN STABLE CONDITION. A/OX1; CONFUSED AND POOR HISTORIAN; PAST MEDICAL HISTORY OBTAINED FROM RECORDS. TELE MONITOR READING NSR, HEART RATE 78. STABLE ON RA; NO S/S OF ACUTE RESPIRATORY DISTRESS; BREATHING IS EVEN AND UNLABORED; BREATH SOUNDS CLEAR. SACRAL REDNESS AND GENERALIZED BRUISING NOTED UPON SKIN ASSESSMENT; PHOTOS TAKEN AND PLACED IN CHART. BELONGINGS ACCOUNTED FOR; FORM PLACED IN CHART. IV PRESENT ON RIGHT AC, SIZE 18, INTACT & PATENT, HEP LOCKED. MED RECONCILIATION COMPLETED IN ER. ADMITTED ORDERS RECEIVED FROM COOK BOX FILLER MONORAIL HOOKER, JACLYN LOUIE. SAFETY MEASURES IN PLACE AND PATIENT'S NEEDS MET. BED LOCKED, HOB ELEVATED, SIDE RAILS X3, ALARM ON, CALL LIGHT WITHIN REACH. WILL CONTINUE TO MONITOR.
[2020-05-21] MEDS: BLOOD SUGAR DIAGNOSTIC 1 EACH STRIP IN SCH (22:43)
[2020-05-21] MEDS: INSULIN REGULAR, HUMAN 100 UNIT/ML 3 ML VIAL SQ PRN (22:45)
--- NOTE | 2020-05-21 22:58 | NUR ---
SHAFT SINKER NOTES SPOKE TO PATIENT'S POA VIA PHONECALL. PER POA, PATIENT HAS AN ADVANCED DIRECTIVE AND CODE STATUS IS DNR; COPY OF ADVANCED DIRECTIVE NOT FOUND IN CHART; POA STATED SHE WILL FAX COPY TOMORROW MORNING. PER POA, PATIENT RECEIVED FLU SHOT AND PNEUMONIA VACCINE LAST MONTH DURING PREVIOUS HOSPITALIZATION. POA INFORMATION: BRUNO CLAYTON
[2020-05-21] MEDS ORDERED: SODIUM BICARBONATE SYR 50 MEQ/50 ML DISP.SYRIN IV ONE (23:30)
[2020-05-22] VITALS (12 sets, daily range): BP systolic 107–137; BP diastolic 48–69
[2020-05-22 05:01] LABS: BILIRUBIN,URINE NEGATIVE (NEGATIVE); BLOOD, URINE SMALL Ery/uL (NEGATIVE); COLOR,URINE YELLOW (YELLOW); LEUKOCYTE ESTERASE ,URINE LARGE (NEGATIVE); NITRITE, URINE NEGATIVE (NEGATIVE); PROTEIN,URINE NEGATIVE (NEGATIVE); UGLUCOSE 250 MG/DL mg/dL (NEGATIVE); UROBILINOGEN,URINE 0.2 EU/dL (0.2)
[2020-05-22 05:11] LABS: BACTERIA,URINE 4+ /HPF (None Seen); SQUAMOUS EPITHELIAL CELL,UR Few /HPF (None Seen); WBC,URINE TOO NUMEROUS TO COUN /HPF (0-3)
[2020-05-22 06:05] LABS: BASOPHILS # (AUTO) 0.1 /CMM (0.0-0.2); BASOPHILS % (AUTO) 0.7 % (0.0-2.0); EOSINOPHILS % (AUTO) 0.1 % (0.0-6.0); HEMATOCRIT 24 % (33-45); HEMOGLOBIN 7.8 g/dL (11.5-14.8); LYMPHOCYTES # (AUTO) 0.7 /CMM (0.8-4.8); LYMPHOCYTES % (AUTO) 6.2 % (20.0-44.0); MEAN CORPUSCULAR HGB CONC 33 g/dl (31.0-36.0); MEAN CORPUSCULAR VOLUME 89 fL (82-100); MONOCYTES # (AUTO) 0.6 /CMM (0.1-1.30); MONOCYTES % (AUTO) 5.1 % (2.0-12.0); NEUTROPHILS # (AUTO) 9.7 /CMM (1.8-8.9); NEUTROPHILS % (AUTO) 87.9 % (43.0-81.0); PLATELET COUNT (AUTO) 263 /CMM (150-450); RED BLOOD CELL COUNT(AUTO) 2.71 MIL/uL (4.0-5.2)
[2020-05-22 06:18] LABS: ALBUMIN 2.5 g/dL (3.4-5.0); BILIRUBIN,TOTAL 0.3 mg/dL (0.2-1.0); CALCIUM, SERUM 8.2 mg/dL (8.5-10.1); CREATININE 1.1 mg/dL (0.6-1.3); MAGNESIUM 1.8 mg/dL (1.8-2.4); PHOSPHORUS 2.9 mg/dL (2.5-4.9); TOTAL PROTEIN, SERUM 5.7 g/dL (6.4-8.2)
[2020-05-22 06:25] LABS: THYROID STIMULATING HORMONE 2.769 uIU/mL (0.358-3.74)
[2020-05-22] MEDS: BLOOD SUGAR DIAGNOSTIC 1 EACH STRIP IN SCH ×4 (07:28→21:17)
--- NOTE | 2020-05-22 07:48 | NUR ---
SPECIAL DELIVERY CARRIER CLOSING NOTES NO ADVERSE EVENTS DURING SHIFT. PATIENT A/OX1. STABLE ON RA; NO S/S OF SOB OR C/O PAIN. TELE MONITOR READING NSR. IV ON RIGHT AC REMAINS INTACT & PATENT WITH D5 1/2 NS RUNNING AT 75 ML/HR. PATIENT CURRENTLY NPO. SAFETY MEASURES IN PLACE AND PATIENT'S NEEDS MET. BED LOCKED, HOB ELEVATED, ALARM ON, SIDE RAIL X3, CALL LIGHT WITHIN REACH. ENDORSED TO DAY SHIFT RN PLAN OF CARE.
[2020-05-22] MEDS ORDERED: TRIAMTERENE/HYDROCHLOROTHIAZID (37.5/25MG) 1 UDCAP PO SCH (09:00)
[2020-05-22] MEDS: MEMANTINE HCL 5 MG TABLET PO SCH (09:23)
[2020-05-22] MEDS: MEGESTROL ACETATE 40 MG TABLET PO SCH ×2 (09:23→17:51)
[2020-05-22] MEDS: SERTRALINE HCL 50 MG TABLET PO SCH (09:23)
[2020-05-22] MEDS: QUETIAPINE FUMARATE 25 MG TABLET PO SCH ×2 (09:23→17:51)
[2020-05-22] MEDS: PANTOPRAZOLE 40 MG VIAL IV SCH (09:23)
[2020-05-22] MEDS: DONEPEZIL 5 MG TABLET PO SCH (09:24)
[2020-05-22] MEDS: ATENOLOL 25 MG TABLET PO SCH (09:24)
[2020-05-22] MEDS: DOCUSATE SODIUM 250 MG CAPSULE PO SCH ×2 (09:24→17:51)
[2020-05-22] MEDS: METFORMIN 850 MG TABLET PO SCH ×2 (09:24→17:51)
[2020-05-22] MEDS: LEVOTHYROXINE SODIUM 50 MCG TABLET PO SCH (09:26)
[2020-05-22 09:42] LABS: CHOLESTEROL 133 mg/dL (<200); HDL CHOLESTEROL 22 mg/dL (40-60); LDL 88 mg/dL (0-99); TRIGLYCERIDES 131 mg/dL (30-150)
[2020-05-22] MEDS: INSULIN REGULAR, HUMAN 100 UNIT/ML 3 ML VIAL SQ PRN ×3 (09:48→18:11)
[2020-05-22 10:04] LABS: THYROID STIMULATING HORMONE 2.687 uIU/mL (0.358-3.74)
--- NOTE | 2020-05-22 10:31 | NUR ---
WOUND CARE CONSULT: PT PRESENTS WITH SACRAL SCARRING AND DISCOLORATION TO BUTTOCKS, PRESENT ON ADMISSION. PT IS INCONTINENT. RECOMMENDATIONS MADE FOR SKIN PROTECTION. DISCUSSED WITH NURSING STAFF. WILL SEE PRN. AVELAR IN AGREEMENT WITH PLAN OF CARE.
[2020-05-22] MEDS: CEFTRIAXONE 1 G in IV D5W 50 ML IV SCH (10:46)
--- NOTE | 2020-05-22 12:20 | NUR ---
ms rn started w/ blood transfusion w/o adverse reaction noted.
--- NOTE | 2020-05-22 14:23 | NUR ---
ms rn still on blood transfusion,no adverse reaction noted.
--- NOTE | 2020-05-22 15:20 | NUR ---
ms rn blood transfusion done w/o adverse reaction noted. will start ferlicit iv next.
[2020-05-22] MEDS: SOD FERRIC GLUC 125 MG in IV NS 0.9% 100 ML IV SCH (15:34)
--- NOTE | 2020-05-22 18:00 | NUR ---
ms rn accucheck - 191- did not covered due to patient is on npo and patientS iv d5 half ns was discontinued ped md's order.
--- NOTE | 2020-05-22 19:30 | NUR ---
MS RN OPENING NOTE RECEIVED PATIENT IN BED. A/OX1. TO SELF. TOLERATING ROOM AIR. RESPIRATIONS ARE EVEN AND UNLABORED. NO S/S SOB NOTED. NO C/O PAIN AT THIS TIME. IN NO APPARENT DISTRESS. IV ACCESS IN RAC#18 PATENT AND SALINE LOCKED. BED IS LOW AND LOCKED, HOB ELEVATED IN HIGH FOWLERS, SIDE RIALS UP X3. CALL LIGHT WITHIN REACH. WILL CONTINUE TO MONITOR.
--- NOTE | 2020-05-22 21:24 | NUR ---
ms rn note patient 2200 accucheck bs is 191. no coverage given d/t patient npo and no ivf. will continue to monitor.
--- NOTE | 2020-05-22 23:37 | NUR ---
MS RN NOTE ADMINISTERED PRN ZOFRAN 4MG FOR C/O NAUSEA, NO EMESIS PRESENT, EMESIS BAG GIVEN. WILL CONTINUE TO MONITOR.
[2020-05-23 06:06] LABS: BASOPHILS # (AUTO) 0.1 /CMM (0.0-0.2); BASOPHILS % (AUTO) 0.7 % (0.0-2.0); HEMATOCRIT 25 % (33-45); HEMOGLOBIN 8.1 g/dL (11.5-14.8); LYMPHOCYTES # (AUTO) 1.6 /CMM (0.8-4.8); LYMPHOCYTES % (AUTO) 16.4 % (20.0-44.0); MEAN CORPUSCULAR HGB CONC 33 g/dl (31.0-36.0); MEAN CORPUSCULAR VOLUME 88 fL (82-100); MONOCYTES # (AUTO) 0.8 /CMM (0.1-1.30); MONOCYTES % (AUTO) 8.8 % (2.0-12.0); NEUTROPHILS # (AUTO) 7.1 /CMM (1.8-8.9); NEUTROPHILS % (AUTO) 74.1 % (43.0-81.0); PLATELET COUNT (AUTO) 204 /CMM (150-450); WHITE BLOOD COUNT (AUTO) 9.6 K/uL (4.3-11.0)
[2020-05-23 06:12] LABS: CREATININE 1.3 mg/dL (0.6-1.3); MAGNESIUM 1.7 mg/dL (1.8-2.4); PHOSPHORUS 2.2 mg/dL (2.5-4.9); POTASSIUM 4.1 mmol/L (3.5-5.1)
--- NOTE | 2020-05-23 06:31 | NUR ---
MS RN CLOSING NOTE PATIENT IS RESTING IN BED. A/OX1. TOLERATING ROOM AIR. NO RESP DISTRESS NOTED. NO C/O PAIN NOTED. MANAGED NAUSEA WITH ZOFRAN. NO DISTRESS. IV ACCESS MAINTAINED IN RAC#18 PATENT AND SALINE LOCKED. BED REMAINS LOW AND LOCKED, HOB ELEVATED IN HIGH FOWLERS, SIDE RIALS UP X3. CALL LIGHT WITHIN REACH. WILL ENDORSE TO NEXT SHIFT.
--- NOTE | 2020-05-23 07:02 | NUR ---
MS RN NOTE HOA ELIZABETH BS READS 201. NO INSULIN COVERAGE D/T PATIENT IS NPO AND HAS NO IVF WITH D5. CHARGE NURSE AWARE. WILL ENDORSE TO NEXT SHIFT.
--- NOTE | 2020-05-23 07:20 | NUR ---
ms rn received on bed, awake,alert,oriented x1,not in any form of distress, respirations even and unlabored,no sob noted, lungs are diminish, abdomen soft,positive bowel sounds,denies pain at this time,all needs attended.
--- NOTE | 2020-05-23 07:30 | NUR ---
ms rn refused blood sugr check,says later.
[2020-05-23 08:00] VITALS: BP 105/54
--- NOTE | 2020-05-23 08:00 | NUR ---
ms rn still on npo status,due meds given,tolerated well.
[2020-05-23] MEDS ORDERED: IV NS 0.9% 1,000 ML IV PRN (09:00)
[2020-05-23] MEDS: ATENOLOL 25 MG TABLET PO SCH (09:00)
[2020-05-23] MEDS: PANTOPRAZOLE 40 MG VIAL IV SCH (09:31)
[2020-05-23] MEDS: MEGESTROL ACETATE 40 MG TABLET PO SCH ×2 (09:31→18:25)
[2020-05-23] MEDS: LEVOTHYROXINE SODIUM 50 MCG TABLET PO SCH (09:32)
[2020-05-23] MEDS: DOCUSATE SODIUM 250 MG CAPSULE PO SCH ×2 (09:32→18:25)
[2020-05-23] MEDS: DONEPEZIL 5 MG TABLET PO SCH (09:32)
[2020-05-23] MEDS: METFORMIN 850 MG TABLET PO SCH ×2 (09:32→18:25)
[2020-05-23] MEDS: BLOOD SUGAR DIAGNOSTIC 1 EACH STRIP IN SCH ×4 (09:32→22:50)
[2020-05-23] MEDS: SERTRALINE HCL 50 MG TABLET PO SCH (09:32)
[2020-05-23] MEDS: MEMANTINE HCL 5 MG TABLET PO SCH (09:32)
[2020-05-23] MEDS: QUETIAPINE FUMARATE 25 MG TABLET PO SCH ×2 (09:32→18:25)
[2020-05-23] MEDS: NEUTRA PHOS 1 POWD.PACKET PO SCH ×2 (09:38→18:36)
--- NOTE | 2020-05-23 10:00 | NUR ---
ms almaguer bs - 213-no coverage given patient on npo and no longer on d5 1/2 ns iv, will recheck again later.
[2020-05-23] MEDS: CEFTRIAXONE 1 G in IV D5W 50 ML IV SCH (10:47)
--- NOTE | 2020-05-23 10:50 | NUR ---
ms almaguer was seen by jt brandon w/ orders made and carried out.
[2020-05-23] MEDS: Magnesium 1GM/D5W 100ML PREMIX 100 ML IV SCH ×2 (13:02→14:04)
[2020-05-23] MEDS: MORPHINE SULFATE INJ 2 MG/ML DISP.SYRIN IV PRN (13:47)
--- NOTE | 2020-05-23 13:53 | NUR ---
rn bs- 231 - 4 units given at this time.will monitor patient.
[2020-05-23] MEDS: INSULIN REGULAR, HUMAN 100 UNIT/ML 3 ML VIAL SQ PRN (14:00)
[2020-05-23] MEDS: SOD FERRIC GLUC 125 MG in IV NS 0.9% 100 ML IV SCH (15:16)
[2020-05-23 16:00] VITALS: BP 104/51
[2020-05-23] MEDS ORDERED: K PHOS NEUTRAL 250 MG TABLET PO ONE (17:30)
--- NOTE | 2020-05-23 18:40 | NUR ---
ms almaguer bs - 119-no coverage noted.
--- NOTE | 2020-05-23 19:35 | NUR ---
MS RN NOTES RECEIVED ON BED,A/O X1,BREATHING REGULAR,NOT IN ANY FORM OF DISTRESS.SALINE LOCK RAC#18 INTACT AND PATENT,NS FLUSHING DONE.NPO EXCEPT MEDS.DVT PUMP IN USED FOR DVT PROPHYLAXIS,ON GEL BED FOR SKIN MANAGEMENT.WILL REPOSITION PER PROTOCOL,DNR/DNI STATUS.WILL CONTINUE TO MONITOR STATUS.
[2020-05-23 20:00] VITALS: BP 99/52
--- NOTE | 2020-05-23 21:30 | NUR ---
MS RN NOTES ACCU-CHECK BLOOD SUGAR CHECK 124,NO INSULIN COVERAGE.
[2020-05-24] VITALS (13 sets, daily range): BP systolic 102–136; BP diastolic 43–68
--- NOTE | 2020-05-24 06:05 | NUR ---
MS RN NOTES CHARGE NURSE SINGH RECEIVED CALL FROM THE LAB,H/H THIS MORNING 6.01/05,CHARGE NURSE SINGH ASKED LAB TO RE RUN TEST FOR COMPARISON.ENDORSED TO ALBERTO HARDIN.
[2020-05-24] MEDS: BLOOD SUGAR DIAGNOSTIC 1 EACH STRIP IN SCH ×4 (06:06→21:27)
--- NOTE | 2020-05-24 06:15 | NUR ---
MS RN NOTES ACCU-CHECK BLOOD SUGAR CHECK 130,NO INSULIN COVERAGE.
[2020-05-24 06:17] LABS: ALBUMIN 2.4 g/dL (3.4-5.0); BILIRUBIN,TOTAL 0.2 mg/dL (0.2-1.0); CALCIUM, SERUM 8.1 mg/dL (8.5-10.1); CREATININE 1.1 mg/dL (0.6-1.3); MAGNESIUM 2.6 mg/dL (1.8-2.4); PHOSPHORUS 3.4 mg/dL (2.5-4.9); POTASSIUM 3.6 mmol/L (3.5-5.1); TOTAL PROTEIN, SERUM 5.2 g/dL (6.4-8.2)
--- NOTE | 2020-05-24 06:29 | NUR ---
MS RN NOTES AWAKE,CALM AND QUIET ON BED,IVF IN PROGRESS,REPOSITION PER PROTOCOL,IN NO ACUTE DISTRESS.WILL ENDORSE TO DAY NURSE FOR MAGDALENO.
--- NOTE | 2020-05-24 08:00 | NUR ---
m/s assistant operations manager: initial assessment received pt in bed awake, alert to name only, able to make simple needs known. no c/o pain at this time. reality orientation provided prn. will continue to monitor.
[2020-05-24] MEDS: QUETIAPINE FUMARATE 25 MG TABLET PO SCH ×2 (08:30→16:34)
[2020-05-24] MEDS: DOCUSATE SODIUM 250 MG CAPSULE PO SCH ×2 (08:30→16:34)
[2020-05-24] MEDS: LEVOTHYROXINE SODIUM 50 MCG TABLET PO SCH (08:30)
[2020-05-24] MEDS: DONEPEZIL 5 MG TABLET PO SCH (08:30)
[2020-05-24] MEDS: METFORMIN 850 MG TABLET PO SCH ×2 (08:30→16:34)
[2020-05-24] MEDS: SERTRALINE HCL 50 MG TABLET PO SCH (08:30)
[2020-05-24] MEDS: ATENOLOL 25 MG TABLET PO SCH (08:30)
[2020-05-24] MEDS: MEGESTROL ACETATE 40 MG TABLET PO SCH ×2 (08:30→16:34)
[2020-05-24] MEDS: MEMANTINE HCL 5 MG TABLET PO SCH (08:30)
[2020-05-24 08:47] LABS: HEMOGLOBIN 6.7 g/dL (11.5-14.8)
[2020-05-24 08:51] LABS: BASOPHILS # (AUTO) 0.1 /CMM (0.0-0.2); EOSINOPHILS % (AUTO) 1.8 % (0.0-6.0); LYMPHOCYTES # (AUTO) 1.7 /CMM (0.8-4.8); LYMPHOCYTES % (AUTO) 26.6 % (20.0-44.0); MEAN CORPUSCULAR HGB CONC 33 g/dl (31.0-36.0); MEAN CORPUSCULAR VOLUME 89 fL (82-100); MONOCYTES # (AUTO) 0.6 /CMM (0.1-1.30); MONOCYTES % (AUTO) 9.6 % (2.0-12.0); PLATELET COUNT (AUTO) 203 /CMM (150-450); RED BLOOD CELL COUNT(AUTO) 2.27 MIL/uL (4.0-5.2); WHITE BLOOD COUNT (AUTO) 6.6 K/uL (4.3-11.0)
[2020-05-24] MEDS ORDERED: PANTOPRAZOLE 40 MG TABLET.DR PO SCH (09:00)
--- NOTE | 2020-05-24 09:00 | NUR ---
m/s food vendor: notes lab called with hgb 6.7/hct 20 results. juancarlos michelle ([facility]) notified and made aware with order to transfuse 2 units of prbc. order read back and carried out and acknowledged.
[2020-05-24 09:03] LABS: HEMATOCRIT 20 % (33-45); HEMOGLOBIN 6.7 g/dL (11.5-14.8)
--- NOTE | 2020-05-24 09:10 | NUR ---
m/s merchandise processor: notes received order to keep pt npo except meds. order carried out and acknowledged.
[2020-05-24] MEDS: CEFTRIAXONE 1 G in IV D5W 50 ML IV SCH (09:13)
[2020-05-24] MEDS: PANTOPRAZOLE 40 MG VIAL IV SCH (09:13)
--- NOTE | 2020-05-24 09:45 | NUR ---
m/s associate automation engineer: notes nora (o.r. nurse) called and planning to do egd with dr. slaughter and needs consents. franko (poa) notified and made aware re: plan of care, informed her that she is going to need 2 units of prbc and egd today or tomorrow with anesthesia and blood transfusion consents. franko (poa) provided consents over the phone with another nurse as a witness.
--- NOTE | 2020-05-24 12:00 | NUR ---
m/s party supply specialist: notes pt remains npo, continue on iv fluids, infusing well. will continue to monitor.
[2020-05-24] MEDS: INSULIN REGULAR, HUMAN 100 UNIT/ML 3 ML VIAL SQ PRN ×2 (12:07→21:27)
[2020-05-24] MEDS ORDERED: IV 1/2NS 1000 ML 1,000 ML IV PRN (12:30)
--- NOTE | 2020-05-24 13:12 | NUR ---
m/s marine service operator: notes follow up with blood bank and informed me that they need to do another type and screen due to previous one expiring.
--- NOTE | 2020-05-24 14:07 | NUR ---
stone/ladan outboard motorboat rigger: notes 1 unit of prbc given at 50ml at this time. afebrile. monitored closely. will continue to monitor. Addendum: 05/24/20 at 1722 by ALBERTO NICOLE RECEPTION CLERK per blood bank, 2nd unit need to order stat type and screen due to expiration. cn made aware.
--- NOTE | 2020-05-24 14:22 | NUR ---
m/s biophysics scientist: notes no a/r noted after 15 minutes of blood transfusion, rate increase. remains afebrile. will continue to monitor.
--- NOTE | 2020-05-24 14:52 | NUR ---
m/s machine or machinery mechanic: notes blood still infusing without a/r noted. will continue to monitor. vss.
--- NOTE | 2020-05-24 15:52 | NUR ---
m/s director supplier quality: notes 1 unit of prbc still infusing without a/r noted. vss, afebrile. will continue to monitor.
--- NOTE | 2020-05-24 17:00 | NUR ---
m/s substation operator apprentice: notes 1 unit of prbc completed without a/r noted. vss, afebrile. will continue to monitor.
[2020-05-24] MEDS: SOD FERRIC GLUC 125 MG in IV NS 0.9% 100 ML IV SCH (17:06)
--- NOTE | 2020-05-24 17:06 | NUR ---
m/s shuttle buggy operator: notes #3 ferrlecit 125mg ivpg given by rn. will continue to monitor.
--- NOTE | 2020-05-24 17:25 | NUR ---
m/s hospice team lead: notes blood bank notified spoke to pasquale and informed me that if her blood is ready, they will call the floor.
--- NOTE | 2020-05-24 17:30 | NUR ---
m/s personal computer specialist: notes no a/r noted after post 30minutes of blood transfusion. will continue to monitor.
--- NOTE | 2020-05-24 18:00 | NUR ---
m/s asphalt mixer: notes no a/r post 1 hour blood transfusion. pt remains npo. needs attended. will continue to monitor.
--- NOTE | 2020-05-24 18:07 | NUR ---
m/s marionette performer: notes f/u made to lab, spoke to rosaline ortega: type and screen draw, test re-ordered.
--- NOTE | 2020-05-24 19:15 | NUR ---
m/s medical manager: notes report given to vinita (rn) for continuity of care.
--- NOTE | 2020-05-24 19:20 | NUR ---
m/s chief lending officer: notes f/u made to blood bank, spoke to pasquale and says she will call when the blood is ready.
--- NOTE | 2020-05-24 19:40 | NUR ---
MS RN OPENING NOTES RECEIVED PATIENT IN BED, ALERT AND ORIENTED X 1-2. VERBALLY RESPONSIVE AND ABLE TO FOLLOW SIMPLE DIRECTIONS. BREATHING REGULAR AND UNLABORED ON ROOM AIR. RIGHT FOREARM G22 AND RIGHT HAND G20 IV LINES INTACT AND PATENT, FLUSHING WELL WITH NO BLEEDING OR S/S OF INFILTRATION NOTED. S/P BLOOD TRANSFUSION OF 1PRBC WITH NO ADVERSE REACTION OBSERVED. NO S/S OF PAIN/DISCOMFORT SEEN AT THIS TIME. BED LOW AND LOCKED ON SEMI FOWLERS POSITION. CALL LIGHT IN REACH. WILL CONTINUE TO MONITOR.
--- NOTE | 2020-05-24 22:10 | NUR ---
MS RN NOTES BLOOD TRANSFUSION OF 1 PRBC STARTED, VITAL SIGNS TAKEN AND RECORDED. BLOOD PRODUCT VERIFIED PRIOR. PATIENT REMAIN ALERT AND ORIENTED X 1-2, AFEBRILE. WILL CLOSELY MONITOR.
[2020-05-24] MEDS: IV D5/0.45 NACL 1,000 ML IV PRN (23:29)
[2020-05-25 00:45] VITALS: BP 129/50
--- NOTE | 2020-05-25 00:45 | NUR ---
MS RN NOTES S/P BLOOD TRANSFUSION OF 1PRBC, VITAL SIGNS TAKEN AND DOCUMENTED. WILL CONTINUE TO MONITOR FOR TRANSFUSION REACTIONS.
[2020-05-25] MEDS: MORPHINE SULFATE INJ 2 MG/ML DISP.SYRIN IV PRN (04:15)
--- NOTE | 2020-05-25 04:20 | NUR ---
MS RN NOTES NOTED WITH FACIAL GRIMACING AND CRYING, MORPHINE 1MG GIVEN VIA IVP. NON-PHARMACOLOGICAL INTERVENTIONS PROVIDED. VITAL SIGNS WNL. WILL CONTINUE TO MONITOR.
[2020-05-25 06:08] LABS: BASOPHILS # (AUTO) 0.1 /CMM (0.0-0.2); BASOPHILS % (AUTO) 0.7 % (0.0-2.0); HEMATOCRIT 31 % (33-45); HEMOGLOBIN 10.7 g/dL (11.5-14.8); LYMPHOCYTES # (AUTO) 2.2 /CMM (0.8-4.8); LYMPHOCYTES % (AUTO) 27.8 % (20.0-44.0); MEAN CORPUSCULAR HGB CONC 34 g/dl (31.0-36.0); MEAN CORPUSCULAR VOLUME 90 fL (82-100); MONOCYTES # (AUTO) 0.7 /CMM (0.1-1.30); MONOCYTES % (AUTO) 9.6 % (2.0-12.0); NEUTROPHILS # (AUTO) 4.6 /CMM (1.8-8.9); NEUTROPHILS % (AUTO) 58.9 % (43.0-81.0); PLATELET COUNT (AUTO) 205 /CMM (150-450); RED BLOOD CELL COUNT(AUTO) 3.51 MIL/uL (4.0-5.2); WHITE BLOOD COUNT (AUTO) 7.8 K/uL (4.3-11.0)
[2020-05-25] MEDS: BLOOD SUGAR DIAGNOSTIC 1 EACH STRIP IN SCH ×4 (06:32→21:32)
[2020-05-25] MEDS: LEVOTHYROXINE SODIUM 50 MCG TABLET PO SCH (06:38)
[2020-05-25 06:46] LABS: CALCIUM, SERUM 7.9 mg/dL (8.5-10.1); CREATININE 0.8 mg/dL (0.6-1.3); MAGNESIUM 2.3 mg/dL (1.8-2.4); PHOSPHORUS 2.7 mg/dL (2.5-4.9); POTASSIUM 3.4 mmol/L (3.5-5.1)
--- NOTE | 2020-05-25 06:50 | NUR ---
MS RN CLOSING NOTES PATIENT IN BED, ALERT AND ORIENTED X 1-2. AFEBRILE WITH NO S/S OF DISTRESS OBSERVED. RIGHT FOREARM G22 AND RIGHT HAND G20 IV LINES PATENT AND INFUSING WELL. NO S/S OF PAIN/DISCOMFORT SEEN AT THIS TIME. BED LOW AND LOCKED ON SEMI FOWLERS POSITION. CALL LIGHT IN REACH. WILL ENDORSE TO MORNING SHIFT FOR MAGDALENO.
--- NOTE | 2020-05-25 07:50 | NUR ---
RN MS OPENING NOTES RECEIVED PATIENT IN BED, A/O X1-2, VERBALLY RESPONSIVE AND ABLE TO FOLLOW SIMPLE DIRECTIONS.ON RA, WITH EVEN UNLABORED BREATHING. IV RT FA #22G AND RT HAND #20G BOTH IV LINES PATENT AND INTACT. NO S/S OF PAIN/DISCOMFORT SEEN AT THIS TIME. BED IS AT LOWEST POSITION AND LOCKED WITH SIDE RAILS UP X2 AND CALL LIGHT WITH IN REACH. WILL CONTINUE TO MONITOR
[2020-05-25 08:11] VITALS: BP 116/52
[2020-05-25] MEDS: PANTOPRAZOLE 40 MG VIAL IV SCH (08:45)
[2020-05-25] MEDS: ANCEF 1 GM/50 ML D5W IV SCH ×4 (08:45→21:19)
[2020-05-25] MEDS: METFORMIN 850 MG TABLET PO SCH ×2 (08:46→16:45)
[2020-05-25] MEDS: QUETIAPINE FUMARATE 25 MG TABLET PO SCH ×2 (08:46→16:45)
[2020-05-25] MEDS: MEGESTROL ACETATE 40 MG TABLET PO SCH ×2 (08:46→16:45)
[2020-05-25] MEDS: DONEPEZIL 5 MG TABLET PO SCH (08:46)
[2020-05-25] MEDS: DOCUSATE SODIUM 250 MG CAPSULE PO SCH ×2 (08:46→16:45)
[2020-05-25] MEDS: SERTRALINE HCL 50 MG TABLET PO SCH (08:46)
[2020-05-25] MEDS: MEMANTINE HCL 5 MG TABLET PO SCH (08:46)
[2020-05-25] MEDS: ATENOLOL 25 MG TABLET PO SCH (08:47)
[2020-05-25] MEDS ORDERED: ANESTHESIA TRAY IN PYXIS 1 EA TRAY MC ONE (09:12)
--- NOTE | 2020-05-25 10:20 | NUR ---
RN NOTES PT LEFT TO FOR EGD PROCEDURE IN STABLE CONDITION. TRANSPORTED BY 2 OR NURSES IN BED. PT IN NPO, AND CONSENT SIGNED AND PLACED IN CHART. PREOP CHECK LIST DONE.
[2020-05-25] MEDS ORDERED: POTASSIUM CHLORIDE 20 MEQ TAB.PRT.SR PO SCH (11:00)
--- NOTE | 2020-05-25 11:05 | NUR ---
RN MS NOTES PT RETURNED TO FLOOR IN STABLE CONDITION FROM EGD PROCEDURE. BP: 144/72 HR: 57 R:18 TEMP: 98.2 O2 SAT 97%. IV TO RT HAND AND ARM BOTH PATENT AND INTACT. PT RESTING COMFORTABLY IN BED. PER ORDERS UPON RETURN PATIENT TO RESUME REGULAR DIET , CARAFATE 1GM SUSPENSION PO. NOTED.
[2020-05-25] MEDS: SUCRALFATE 1 G/10 ML UDC PO SCH ×3 (12:49→21:19)
[2020-05-25] MEDS: SOD FERRIC GLUC 125 MG in IV NS 0.9% 100 ML IV SCH (14:15)
[2020-05-25 16:00] VITALS: BP 135/47
--- NOTE | 2020-05-25 18:48 | NUR ---
RN CLOSING NOTES PATIENT RESTING IN BED, A/O X1-2, VERBALLY RESPONSIVE AND ABLE TO FOLLOW COMMANDS. PT IS ON RA, WITH EVEN UNLABORED BREATHING. IV RT FA #22G AND RT HAND #20G BOTH IV LINES PATENT AND INTACT. RUNNING WITH D5 1/2 NS @75 ML/HR. NO S/S OF PAIN/OR DISCOMFORT NOTES. BED IS AT LOWEST POSITION AND LOCKED WITH SIDE RAILS UP X2 AND CALL LIGHT WITH IN REACH. WILL ENDORSE TO ONCOMING SHIFT.
[2020-05-25 20:00] VITALS: BP 121/52
--- NOTE | 2020-05-25 20:00 | NUR ---
Received patient from AM nurse. Patient in bed resting comfortably, awake, alert and oriented x1/2. Patient on room air, breathing equal and unlabored. No acute respiratory distress or SOB noted. IV access on right hand, 20 gauge and right forearm 22 gauge, both patent and intact. Safety precaution is in place, bed is in the lowest level, wheels are locked, alarm i son, side rails x2 are up, and call light is within reach. Will continue to monitor.
[2020-05-25] MEDS: IV D5/0.45 NACL 1,000 ML IV PRN (20:30)
[2020-05-25] MEDS: INSULIN REGULAR, HUMAN 100 UNIT/ML 3 ML VIAL SQ PRN (21:31)
[2020-05-26 06:30] LABS: BASOPHILS % (AUTO) 0.4 % (0.0-2.0); EOSINOPHILS % (AUTO) 3.6 % (0.0-6.0); HEMATOCRIT 32 % (33-45); HEMOGLOBIN 11.1 g/dL (11.5-14.8); LYMPHOCYTES # (AUTO) 3.3 /CMM (0.8-4.8); LYMPHOCYTES % (AUTO) 42.4 % (20.0-44.0); MEAN CORPUSCULAR HGB CONC 34 g/dl (31.0-36.0); MEAN CORPUSCULAR VOLUME 90 fL (82-100); MONOCYTES # (AUTO) 0.5 /CMM (0.1-1.30); MONOCYTES % (AUTO) 6.1 % (2.0-12.0); NEUTROPHILS # (AUTO) 3.6 /CMM (1.8-8.9); NEUTROPHILS % (AUTO) 47.5 % (43.0-81.0); PLATELET COUNT (AUTO) 223 /CMM (150-450); RED BLOOD CELL COUNT(AUTO) 3.57 MIL/uL (4.0-5.2); WHITE BLOOD COUNT (AUTO) 7.7 K/uL (4.3-11.0)
[2020-05-26 07:08] LABS: CALCIUM, SERUM 7.3 mg/dL (8.5-10.1); CREATININE 0.7 mg/dL (0.6-1.3); MAGNESIUM 1.9 mg/dL (1.8-2.4); PHOSPHORUS 2.3 mg/dL (2.5-4.9); POTASSIUM 3.2 mmol/L (3.5-5.1)
[2020-05-26] MEDS: BLOOD SUGAR DIAGNOSTIC 1 EACH STRIP IN SCH (07:14)
[2020-05-26] MEDS: INSULIN REGULAR, HUMAN 100 UNIT/ML 3 ML VIAL SQ PRN (07:15)
[2020-05-26] MEDS ORDERED: SUCR1ORA6 PO (07:30)
[2020-05-26] MEDS ORDERED: PANT40TA2 PO (07:30)
[2020-05-26] MEDS: LEVOTHYROXINE SODIUM 50 MCG TABLET PO SCH (07:36)
--- NOTE | 2020-05-26 07:45 | NUR ---
RN MS NOTES RECEIVED PATIENT IN BED, A/O X1-2, VERBALLY RESPONSIVE AND ABLE TO FOLLOW SIMPLE DIRECTIONS.ON RA, WITH EVEN UNLABORED BREATHING. BOTH IV'S RT FA #22G AND RT HAND #20G ARE LEAKING. RECEIVED ORDER FOR D/C FROM DR. SHERIDAN. NO NEW IV INSERTION NEEDED AT THIS TIME. CONSTANZA CARR WAS CONTACTED AND MADE AWARE OR D/C TODAY. NO S/S OF PAIN/DISCOMFORT SEEN AT THIS TIME. BED IS AT LOWEST POSITION AND LOCKED WITH SIDE RAILS UP X2 AND CALL LIGHT WITH IN REACH. WILL CONTINUE TO MONITOR
[2020-05-26] MEDS ORDERED: NITR100C PO (07:46)
[2020-05-26 08:00] VITALS: BP 143/57
[2020-05-26] MEDS ORDERED: POTASSIUM CHLORIDE 20 MEQ TAB.PRT.SR PO ONE (08:30)
[2020-05-26] MEDS ORDERED: NEUTRA PHOS 1 POWD.PACKET PO SCH (09:00)
[2020-05-26] MEDS ORDERED: PANTOPRAZOLE 40 MG TABLET.DR PO SCH (09:00)
[2020-05-26] MEDS: DOCUSATE SODIUM 250 MG CAPSULE PO SCH (09:01)
[2020-05-26] MEDS: METFORMIN 850 MG TABLET PO SCH (09:01)
[2020-05-26] MEDS: SUCRALFATE 1 G/10 ML UDC PO SCH (09:01)
[2020-05-26] MEDS: MEMANTINE HCL 5 MG TABLET PO SCH (09:01)
[2020-05-26] MEDS: MEGESTROL ACETATE 40 MG TABLET PO SCH (09:01)
[2020-05-26] MEDS: DONEPEZIL 5 MG TABLET PO SCH (09:01)
[2020-05-26 09:02] VITALS: BP 143/57
[2020-05-26] MEDS: ATENOLOL 25 MG TABLET PO SCH (09:02)
[2020-05-26] MEDS: SERTRALINE HCL 50 MG TABLET PO SCH (09:02)
[2020-05-26] MEDS: QUETIAPINE FUMARATE 25 MG TABLET PO SCH (09:02)
[2020-05-26] MEDS: ANCEF 1 GM/50 ML D5W IV SCH ×2 (09:05)
--- NOTE | 2020-05-26 12:00 | NUR ---
MOBILE SERVICE RV TECHNICIAN NOTES DISCHARGE ORDERS RECEIVED FOR PATIENT, DPOA BRUNO CLAYTON NOTIFED AT [phone]., MEDICATION AND DISCHARGE INSTRUCTIONS AND EDUCATION PROVIDED TO PATIENT AND DPOA. DPOA VERBALIZED UNDERSTANDING. SKIN CHECK DONE, PICTURES TAKEN. BELONGIS CHECKED. VITALS TAKEN, IV TO RT HAND REMOVED. PT IS IN STABLE CONDITION FOR D/C. PT WAS TRANSPORTED VIA GURNEY BY 2 AMBULANCE PERSONNEL IN STABLE CONDITION. PT DISCHARGED HOME.
== END 2020-05-26 14:53 | disposition home health service (06) | DRG 380 ==
LOC: ER 17:33 → TELE 20:08 → MED 05-22 10:59
PROVIDERS: ADMIT Nurse Practitioner Acute Care; ATTEND Family Medicine
PROC: 30233N1 Transfusion of Nonautologous Red Blood Cells into Peripheral Vein, Percutaneous Approach (ICD-10-PCS; principal; 2020-05-22)
PROC: 0DB68ZX Excision of Stomach, Via Natural or Artificial Opening Endoscopic, Diagnostic (ICD-10-PCS; 2020-05-25)
DX: K22.11 Ulcer of esophagus with bleeding (principal); N17.0 Acute kidney failure with tubular necrosis; R53.2 Functional quadriplegia; D68.59 Other primary thrombophilia; J81.1 Chronic pulmonary edema; E44.0 Moderate protein-calorie malnutrition; N39.0 Urinary tract infection, site not specified; D62 Acute posthemorrhagic anemia; E87.0 Hyperosmolality and hypernatremia; I25.10 Atherosclerotic heart disease of native coronary artery without angina pectoris; Z66 Do not resuscitate; F01.50 Vascular dementia, unspecified severity, without behavioral disturbance, psychotic disturbance, mood disturbance, and anxiety; E88.09 Other disorders of plasma-protein metabolism, not elsewhere classified; Z68.24 Body mass index [BMI] 24.0-24.9, adult; E03.9 Hypothyroidism, unspecified; E11.65 Type 2 diabetes mellitus with hyperglycemia; M81.0 Age-related osteoporosis without current pathological fracture; Z85.3 Personal history of malignant neoplasm of breast; Z79.899 Other long term (current) drug therapy; Z90.10 Acquired absence of unspecified breast and nipple; Z98.890 Other specified postprocedural states; Z88.8 Allergy status to other drugs, medicaments and biological substances; Z91.018 Allergy to other foods; Z79.82 Long term (current) use of aspirin; Z79.84 Long term (current) use of oral hypoglycemic drugs; F32.9 Major depressive disorder, single episode, unspecified; Z74.09 Other reduced mobility; D50.9 Iron deficiency anemia, unspecified; F39 Unspecified mood [affective] disorder; E78.5 Hyperlipidemia, unspecified; I10 Essential (primary) hypertension; I25.2 Old myocardial infarction; K29.70 Gastritis, unspecified, without bleeding; K44.9 Diaphragmatic hernia without obstruction or gangrene; B96.20 Unspecified Escherichia coli [E. coli] as the cause of diseases classified elsewhere
CPT/HCPCS: 36415; 71045-TC; 80048-TC; 80053-TC; 80061-TC; 80076-TC; 81000-TC; 82306; 82728-TC; 82962-TC; 83540-TC; 83735-TC; 84100-TC; 84439-TC; 84443-TC; 84484-TC; 85025-TC; 85027-TC; 85730-TC; 86140-TC; 86850-TC; 87081-TC; 87086-TC; 87186-TC; 88305-TC; 88313-TC; 88342; 97112-TC; 97530-TC; C9113; C9803; G0378; J0690; J0696; J1815; J2270; J2405; J2704; J2916; J3475; J3490; J7030; J7050; J7060; P9016-BL

== ENCOUNTER 2020-06-19 11:28 | Outpatient (CLI) | payer MEDICARE, BC ==
[~2020-06-19 11:28] MED LIST changes: +ACET-868 PO; +ASPI-1420 PO; -ASPI-605 PO; -GLIP5TAB13 PO; +METF-441 PO; +NITR100C PO; -OSEL75CA PO; +PANT40TA2 PO; +SUCR1ORA6 PO
== END 2020-06-19 23:59 | disposition home or self-care (01) ==
LOC: MSC 11:28
PROVIDERS: ATTEND Internal Medicine
DX: E11.22 Type 2 diabetes mellitus with diabetic chronic kidney disease (principal); I12.9 Hypertensive chronic kidney disease with stage 1 through stage 4 chronic kidney disease, or unspecified chronic kidney disease; N18.9 Chronic kidney disease, unspecified; Z79.84 Long term (current) use of oral hypoglycemic drugs; G47.00 Insomnia, unspecified; R53.83 Other fatigue; E03.9 Hypothyroidism, unspecified; E55.9 Vitamin D deficiency, unspecified; R41.89 Other symptoms and signs involving cognitive functions and awareness; M81.0 Age-related osteoporosis without current pathological fracture; F41.1 Generalized anxiety disorder; R26.89 Other abnormalities of gait and mobility; Z79.899 Other long term (current) drug therapy